=== PATIENT | female | born 1955 | race Caucasian/White ===

== ENCOUNTER 2020-12-29 07:34 | Outpatient (REF) | payer OTHER, SELFPAY ==
[2020-12-29 08:03] LABS: MANUAL DIFF FLAG NO
[2020-12-29 08:05] LABS: Basophils Absolute Auto 0.1 X10*3/uL (0.0-0.2); Basophils Percent Auto 1.1 % (0-2); Eosinophils Absolute Auto 0.2 X10*3/uL (0.0-0.4); Eosinophils Percent Auto 3.2 % (0-4); Hematocrit 40.8 % (37-47); Imm Gran Abs Auto 0.02 X10*3/uL (0.00-0.03); Imm Gran Pct Auto 0.4 % (0.0-0.4); Lymphocytes Absolute Auto 2.3 X10*3/uL (1.2-4.9); Lymphocytes Percent Auto 41.3 % (20-40); Mean Corpuscular HGB Conc 31.9 g/dl (31.0-35.0); Mean Corpuscular Hemoglobin 28.6 pg (27.0-33.0); Mean Corpuscular Volume 89.7 fL (80-98); Mean Platelet Volume 10.5 fL (9.4-12.3); Monocytes Absolute Auto 0.5 X10*3/uL (0.1-1.2); Monocytes Percent Auto 9.2 % (2-11); Neutrophils Absolute Auto 2.5 X10*3/uL (2.0-8.3); Neutrophils Percent Auto 44.8 % (45-73); Platelet Count 290 X10*3/uL (160-400); Red Blood Count 4.55 X10*6/uL (4.20-5.50); Red Cell Distribution Width 12.8 % (11.0-16.0); White Blood Count 5.6 X10*3/uL (4.8-10.8)
[2020-12-29 08:29] LABS: Anion Gap 11 (12-20); Blood Urea Nitrogen 15 mg/dL (9-16); Calcium 9.2 mg/dL (8.4-10.2); Carbon Dioxide 28 mmol/L (22-29); Chloride 106 mmol/L (96-108); Cholesterol 216 mg/dL; Estimated Glomerular Filt Rate > 60; Glucose Fasting 95 mg/dL (60-99); HDL Cholesterol 49 mg/dL; LDL Cholesterol Calculated 149 mg/dl; Potassium 4.6 mmol/L (3.3-5.1); Sodium 140 mmol/L (135-145); Triglycerides 92 mg/dL
[2020-12-29 08:53] LABS: TSH reflex Free T4 13.92 uIU/mL (0.32-4.0)
[2020-12-29 09:26] LABS: Free T4 (Free Thyroxine) 0.76 ng/dL (0.71-1.85)
== END 2020-12-29 07:35 | disposition home or self-care (01) ==
LOC: HO.LAB 07:34
PROVIDERS: PCP Internal Medicine; Visit Provider Nurse Practitioner Family
DX: E03.9 Hypothyroidism, unspecified (principal)
CPT/HCPCS: 36415; 80048; 80061; 84439; 84443; 85025

== ENCOUNTER 2021-05-10 10:33 | Outpatient (REF) | payer OTHER, SELFPAY ==
[2021-05-10 11:48] LABS: Cholesterol 202 mg/dL; HDL Cholesterol 49 mg/dL; LDL Cholesterol Calculated 120 mg/dl; Triglycerides 167 mg/dL
[2021-05-10 12:09] LABS: Thyroid Stimulating Hormone 2.71 uIU/mL (0.32-4.0)
[2021-05-11 05:42] LABS: Thyroglobulin Antibodies <1 IU/mL (< or = 1); Thyroid Peroxidase Antibodies 1 IU/mL (<9)
[2021-05-18 14:27] LABS: Vitamin D 25-OH, D2 <4 ng/mL; Vitamin D 25-OH, D3 22 ng/mL; Vitamin D 25-OH, Total 22 ng/mL (30-100)
== END 2021-05-10 10:34 | disposition home or self-care (01) ==
LOC: HO.LAB 10:33
PROVIDERS: PCP Internal Medicine; Visit Provider Internal Medicine
DX: E78.5 Hyperlipidemia, unspecified (principal); E55.9 Vitamin D deficiency, unspecified; E03.9 Hypothyroidism, unspecified
CPT/HCPCS: 36415; 80061; 82306; 84443; 86376; 86800

== ENCOUNTER 2021-05-30 10:24 | Emergency (ER) | payer OTHER, SELFPAY ==
--- NOTE | ~2021-05-30 | XR_ITS ---
EXAMINATION: XR CHEST CLINICAL INFORMATION: Epigastric pain COMPARISON: Previous chest x-ray most recent December 2015 TECHNIQUE: 2 views of the chest were obtained. FINDINGS: The cardiac and mediastinal contours are stable. The lungs are clear. There is no pleural effusion or pneumothorax. There are degenerative changes of the spine. XR/XR chest 2V IMPRESSION: No evidence for acute disease in the chest.
--- NOTE | ~2021-05-30 | CT_ITS ---
EXAMINATION: CT ABDOMEN AND PELVIS WITH CONTRAST CLINICAL INFORMATION: Epigastric pain and nausea COMPARISON: None TECHNIQUE: Multidetector volumetric images were obtained from the superior aspect of the liver through the pubic symphysis following administration 85 mL of Omnipaque 350 intravenous contrast. Sagittal and coronal reformatted images were obtained on the technologist's workstation. Oral contrast: Yes This CT examination was performed using dose optimization techniques as appropriate, variously including the following: *Automated exposure control *Adjustment of mA and/or kV according to patient size (this includes techniques or standardized protocols for targeted exams where dose is matched to indication/reason for exam; i.e. extremities or head) *Use of iterative reconstruction technique DLP: 468 mGy-cm FINDINGS: LUNG BASES: The visualized lung bases are unremarkable. LIVER, GALLBLADDER, AND BILIARY TREE: The liver is normal in size, shape, and attenuation. No focal hepatic lesion or biliary ductal dilatation is present. The gallbladder has been removed. PANCREAS: Unremarkable. SPLEEN: Unremarkable. ADRENAL GLANDS: Unremarkable. KIDNEYS AND URETERS: There is a small 5 mm low-attenuation lesion in the right kidney probably representing a cyst. Kidneys are otherwise unremarkable. BLADDER: Unremarkable. GASTROINTESTINAL TRACT: The terminal ileum, cecum and proximal right colon are slightly distended and filled with fluid. There is question of area of wall thickening and wall enhancement in the proximal right colon versus changes due to peristalsis, for example axial image 44 series 3, coronal reconstructed image 39 and sagittal reconstructed image 96. Small and large bowel is otherwise unremarkable. The appendix is upper normal in size measuring 7 mm at the tip. There is high attenuation seen in the tip of the appendix. This may represent retained oral contrast or appendicolith. The peripancreatic fat is normal. There is no fluid seen surrounding the appendix. ABDOMINAL WALL: There is a small umbilical hernia containing fat. LYMPH NODES: Normal. VASCULAR: Unremarkable. PELVIC VISCERA: Uterus appears to have been removed. No pelvic mass is seen. OSSEOUS STRUCTURES: Unremarkable. CT/CT abdomen pelvis w con IMPRESSION: Slightly distended fluid-filled terminal ileum, cecum and proximal right colon suggestive of an ileus. There is question of mild focal wall thickening and enhancement of the proximal right colon versus changes related to peristalsis. Possible colitis should be considered. A mass cannot be excluded. Upper normal-size tip of the appendix. There is high attenuation in the tip of the appendix questionable for retained oral contrast versus appendicolith. The periappendiceal fat is normal without inflammatory changes. Clinical correlation recommended.
[2021-05-30 10:29] VITALS: BP 160/70; PULSE 72; RESP 12; TEMP 36.5; O2SAT 99; BMI 27.8
--- NOTE | 2021-05-30 11:39 | ECG_ITS ---
Test Reason : EPIGASTRICPAIN Blood Pressure : / mmHG Vent. Rate : 051 BPM Atrial Rate : 051 BPM P-R Int : 156 ms QRS Dur : 100 ms QT Int : 456 ms P-R-T Axes : 026 -03 018 degrees QTc Int : 420 ms Sinus bradycardia Otherwise normal ECG No previous ECGs available Referred By: Veronique Bynum Electronically Signed By:Kwame Hernandez
[2021-05-30] MEDS: 0.9 % Sodium Chloride 1,000 ML 999 ML IVCONT (12:02)
[2021-05-30] MEDS: ondansetron HCL 4 MG/2 ML VIAL IVPUSH (12:02)
[2021-05-30 12:07] LABS: MANUAL DIFF FLAG NO
[2021-05-30 12:08] LABS: Basophils Absolute Auto 0.1 X10*3/uL (0.0-0.2); Basophils Percent Auto 0.6 % (0-2); Eosinophils Absolute Auto 0.1 X10*3/uL (0.0-0.4); Eosinophils Percent Auto 0.9 % (0-4); Hematocrit 41.4 % (37-47); Hemoglobin 13.3 g/dl (12.0-16.0); Imm Gran Abs Auto 0.03 X10*3/uL (0.00-0.03); Imm Gran Pct Auto 0.3 % (0.0-0.4); Lymphocytes Absolute Auto 1.7 X10*3/uL (1.2-4.9); Lymphocytes Percent Auto 19.6 % (20-40); Mean Corpuscular HGB Conc 32.1 g/dl (31.0-35.0); Mean Corpuscular Hemoglobin 28.7 pg (27.0-33.0); Mean Corpuscular Volume 89.2 fL (80-98); Mean Platelet Volume 10.5 fL (9.4-12.3); Monocytes Absolute Auto 0.7 X10*3/uL (0.1-1.2); Monocytes Percent Auto 7.8 % (2-11); Neutrophils Absolute Auto 6.3 X10*3/uL (2.0-8.3); Neutrophils Percent Auto 70.8 % (45-73); Platelet Count 306 X10*3/uL (160-400); Red Blood Count 4.64 X10*6/uL (4.20-5.50); Red Cell Distribution Width 13.5 % (11.0-16.0); White Blood Count 8.8 X10*3/uL (4.8-10.8)
--- NOTE | 2021-05-30 12:08 | ED_ITS ---
HPI - Abdominal Pain General Chief Complaint: Abdominal Pain Stated Complaint: abd pain Time Seen by Provider: 05/30/21 11:29 Source: patient Mode of arrival: ambulatory History of Present Illness HPI narrative: 65-year-old female with a past medical history of hyperlipidemia, hypothyroid, s/p , hysterectomy, and cholecystectomy, presenting to the ED complaining of epigastric abdominal pain radiating to back with associated nausea, diaphoresis, lightheadedness, & generalized fatigue beginning around 10:30am. Admits symptoms improving at present. Reports similar episode prior to cholecystectomy, however this is 1st episode since cholecystectomy. Denies fever, chills, vomiting, CP/SOB, diarrhea/constipation, dysuria/hematuria MD elicited complaint: abdominal pain Related Data Previous Rx's Medication Instructions Recorded levothyroxine 50 mcg tablet 50 mcg PO DAILY 90 Days #90 tab 04/11/21 Allergies Allergy/AdvReac Type Severity Reaction Status Date / Time No Known Allergies Allergy Verified 05/01/21 16:30 [No Known Allergies*] Review of Systems Review of Systems Constitutional: No Fever, No Chills, + Fatigue, No Malaise, + diaphoresis ENT/Mouth: No Ear Pain, No Nasal Congestion, No sore throat, No Swallowing Difficulty Eyes: No Eye Pain, No Vision Changes Cardiovascular: No Chest Pain, No SOB, No Edema Respiratory: No Cough, No Dyspnea Gastrointestinal: + Nausea, No Vomiting, No Diarrhea, No Constipation, + Abdominal pain Genitourinary: No Dysuria, No Urinary Frequency, No Hematuria, No Flank Pain Musculoskeletal: No joint pain, No Myalgias, No Joint Swelling Skin: No Skin Lesions, No rash Neuro: + generalized Weakness, No Loss of Consciousness, + lightheadedness, No Headache Yes all other systems are reviewed and are negative Physical Exam Vital Signs: Vital Signs: Last Vital Signs Temp 97.7 F 05/30/21 16:11 Pulse 59 05/30/21 16:11 Resp 18 05/30/21 16:11 BP 170/82 H 05/30/21 16:11 Pulse Ox 99 05/30/21 16:11 Body Mass Index 27.8 Const: General: cooperative, healthy appearing and no acute distress Orientation/consciousness: patient oriented x3 Limitations: no limitations HENMT: Head: Yes normal to inspection Ears: hearing grossly normal bilaterally General nose exam: Normal external nose present Face and sinus: Yes normal facial exam Eyes: General: appearance normal, both eyes and all related structures EOM: EOMs intact bilaterally Neck: Neck: Yes normal visual inspection and Yes no meningeal signs Resp: Effort & Inspection: normal respiratory effort Auscultation: clear to auscultation bilaterally, no rales, no rhonchi and no wheezes Cardio: Rate: regular rate Heart sounds: S1 normal heart sound present and S2 normal heart sound present Peripheral pulses: Peripheral pulses 2+ throughout GI: Inspection: Yes normal to inspection Palpation (GI): Soft to palpation, Tenderness to palpation present (GI) in the epigastrum, no guarding and not rigid : General: Yes no CVA tenderness Back/Spine/Pelvis: Back: no CVA tenderness Skin: Rashes: no rashes Wounds: no wounds Neuro: General: patient oriented x3, moves all extremities and no meningeal signs Gait exam (Neuro): Normal gait present Extrem: General: Yes normal to inspection and Yes no pedal edema Course Course Course Narrative: XR chest 2V IMPRESSION: No evidence for acute disease in the chest. -1313-- no leukocytosis, troponin x1 negative, labs otherwise unremarkable -UA with trace leuk esterase, otherwise not infected XR chest 2V IMPRESSION: No evidence for acute disease in the chest. CT abdomen pelvis w con IMPRESSION: Slightly distended fluid-filled terminal ileum, cecum and proximal right colon suggestive of an ileus. There is question of mild focal wall thickening and enhancement of the proximal right colon versus changes related to peristalsis. Possible colitis should be considered. A mass cannot be excluded. Upper normal-size tip of the appendix. There is high attenuation in the tip of the appendix questionable for retained oral contrast versus appendicolith. The periappendiceal fat is normal without inflammatory changes. Clinical correlation recommended >> case discussed with Dr. Chris, surgery he will evaluate patient in the ED. Patient denies abdominal pain at this time, denies nausea / vomiting. -1714--patient was evaluated by Dr. Chris and was offered admission however patient declined, recommended patient obtains colonoscopy outpatient, patient denies pain at present, abdomen is soft and nontender, worrisome signs and symptoms and strict return precautions were discussed, she verbalized understanding feel safe for discharge home MDM - Abdominal Pain MDM Narrative Medical decision making narrative: 65-year-old female with a past medical history of hyperlipidemia, hypothyroid, s/p , hysterectomy, and cholecystectomy, presenting to the ED complaining of epigastric abdominal pain radiating to back with associated nausea, diaphoresis, lightheadedness, & generalized fatigue beginning around 10:30am. On exam VSS, NAD/well-appearing, concern for ACS vs pancreatitis. Unlikely dissection or AAA as symptoms are improving Plan: EKG, labs, troponin x2, CXR, CT AP, reassess Medical Records Attestation: I reviewed the patient's medical records. Lab Data Attestation: I reviewed the patient's lab results. Result diagrams: 05/30/21 12:02 05/30/21 12:02 Labs: Lab Results 05/30/21 05/30/21 05/30/21 Range/Units 12:02 12:02 12:02 WBC 8.8 (4.8-10.8) X10*3/uL RBC 4.64 (4.20-5.50) X10*6/uL Hgb 13.3 (12.0-16.0) g/dl Hct 41.4 (37-47) % MCV 89.2 (80-98) fL MCH 28.7 (27.0-33.0) pg MCHC 32.1 (31.0-35.0) g/dl RDW 13.5 (11.0-16.0) % Plt Count 306 (160-400) X10*3/uL MPV 10.5 (9.4-12.3) fL Immature Gran % (Auto) 0.3 (0.0-0.4) % Neut % (Auto) 70.8 (45-73) % Lymph % (Auto) 19.6 L (20-40) % [place] % (Auto) 7.8 (2-11) % Eos % (Auto) 0.9 (0-4) % Baso % (Auto) 0.6 (0-2) % Lymph # (Auto) 1.7 (1.2-4.9) X10*3/uL [place] # (Auto) 0.7 (0.1-1.2) X10*3/uL Eos # (Auto) 0.1 (0.0-0.4) X10*3/uL Baso # (Auto) 0.1 (0.0-0.2) X10*3/uL Abs Immat Gran (auto) 0.03 (0.00-0.03) X10*3/uL Absolute Neuts (auto) 6.3 (2.0-8.3) X10*3/uL Absolute Nucleated RBC 0.000 (0.0-0.012) X10*3/uL Nucleated RBC % (auto) 0.0 (0.0-0.2) /100WBC PT (9.9-13.0) SEC INR (0.9-1.1) APTT (24.1-38.0) SEC Sodium 139 (135-145) mmol/L Potassium 4.2 (3.3-5.1) mmol/L Chloride 103 (96-108) mmol/L Carbon Dioxide 28 (22-29) mmol/L Anion Gap 12 (12-20) BUN 14 (9-16) mg/dL Creatinine 0.86 (0.5-1.4) mg/dL Estim Creat Clear Calc 58.5 Estimated GFR > 60 Random Glucose 101 (60-115) mg/dL Calcium 9.9 D (8.4-10.2) mg/dL Magnesium 2.0 (1.6-2.6) mg/dL Total Bilirubin 0.4 (0.0-1.0) mg/dL Direct Bilirubin 0.2 (0.0-0.5) mg/dL AST 20 (5-31) U/L ALT 11 (0-31) U/L Alkaline Phosphatase 83 (39-117) U/L Troponin I High Sens < 3.5 (<3.5-17.0) ng/L Total Protein 7.3 (6.5-8.0) g/dL Albumin 4.3 (3.5-5.0) g/dL Lipase (8-78) U/L Urine Color Urine Appearance Urine pH (5.0-8.0) Ur Specific [place] (1.005-1.025) Urine Protein (NEG-TRACE) MG/DL Urine Glucose (UA) (NEG) MG/DL Urine Ketones (NEG) MG/DL Urine Blood (NEG) Urine Nitrite (NEG) Ur Leukocyte Esterase (NEG) Urine RBC (0) /HPF Urine WBC (0-4) /HPF Ur Squamous Epith Cells /LPF Urine Bacteria /LPF 05/30/21 05/30/21 05/30/21 Range/Units 12:02 12:02 12:43 WBC (4.8-10.8) X10*3/uL RBC (4.20-5.50) X10*6/uL Hgb (12.0-16.0) g/dl Hct (37-47) % MCV (80-98) fL MCH (27.0-33.0) pg MCHC (31.0-35.0) g/dl RDW (11.0-16.0) % Plt Count (160-400) X10*3/uL MPV (9.4-12.3) fL Immature Gran % (Auto) (0.0-0.4) % Neut % (Auto) (45-73) % Lymph % (Auto) (20-40) % [place] % (Auto) (2-11) % Eos % (Auto) (0-4) % Baso % (Auto) (0-2) % Lymph # (Auto) (1.2-4.9) X10*3/uL [place] # (Auto) (0.1-1.2) X10*3/uL Eos # (Auto) (0.0-0.4) X10*3/uL Baso # (Auto) (0.0-0.2) X10*3/uL Abs Immat Gran (auto) (0.00-0.03) X10*3/uL Absolute Neuts (auto) (2.0-8.3) X10*3/uL Absolute Nucleated RBC (0.0-0.012) X10*3/uL Nucleated RBC % (auto) (0.0-0.2) /100WBC PT 11.2 (9.9-13.0) SEC INR 1.0 (0.9-1.1) APTT 32.6 (24.1-38.0) SEC Sodium (135-145) mmol/L Potassium (3.3-5.1) mmol/L Chloride (96-108) mmol/L Carbon Dioxide (22-29) mmol/L Anion Gap (12-20) BUN (9-16) mg/dL Creatinine (0.5-1.4) mg/dL Estim Creat Clear Calc Estimated GFR Random Glucose (60-115) mg/dL Calcium (8.4-10.2) mg/dL Magnesium (1.6-2.6) mg/dL Total Bilirubin (0.0-1.0) mg/dL Direct Bilirubin (0.0-0.5) mg/dL AST (5-31) U/L ALT (0-31) U/L Alkaline Phosphatase (39-117) U/L Troponin I High Sens (<3.5-17.0) ng/L Total Protein (6.5-8.0) g/dL Albumin (3.5-5.0) g/dL Lipase 9 (8-78) U/L Urine Color STRAW Urine Appearance CLEAR Urine pH 7.0 (5.0-8.0) Ur Specific [place] <= 1.005 (1.005-1.025) Urine Protein NEG (NEG-TRACE) MG/DL Urine Glucose (UA) NEG (NEG) MG/DL Urine Ketones NEG (NEG) MG/DL Urine Blood NEG (NEG) Urine Nitrite NEG (NEG) Ur Leukocyte Esterase TRACE H (NEG) Urine RBC 0 (0) /HPF Urine WBC 0-2 (0-4) /HPF Ur Squamous Epith Cells TRACE /LPF Urine Bacteria NONE /LPF 05/30/21 Range/Units 15:20 WBC (4.8-10.8) X10*3/uL RBC (4.20-5.50) X10*6/uL Hgb (12.0-16.0) g/dl Hct (37-47) % MCV (80-98) fL MCH (27.0-33.0) pg MCHC (31.0-35.0) g/dl RDW (11.0-16.0) % Plt Count (160-400) X10*3/uL MPV (9.4-12.3) fL Immature Gran % (Auto) (0.0-0.4) % Neut % (Auto) (45-73) % Lymph % (Auto) (20-40) % [place] % (Auto) (2-11) % Eos % (Auto) (0-4) % Baso % (Auto) (0-2) % Lymph # (Auto) (1.2-4.9) X10*3/uL [place] # (Auto) (0.1-1.2) X10*3/uL Eos # (Auto) (0.0-0.4) X10*3/uL Baso # (Auto) (0.0-0.2) X10*3/uL Abs Immat Gran (auto) (0.00-0.03) X10*3/uL Absolute Neuts (auto) (2.0-8.3) X10*3/uL Absolute Nucleated RBC (0.0-0.012) X10*3/uL Nucleated RBC % (auto) (0.0-0.2) /100WBC PT (9.9-13.0) SEC INR (0.9-1.1) APTT (24.1-38.0) SEC Sodium (135-145) mmol/L Potassium (3.3-5.1) mmol/L Chloride (96-108) mmol/L Carbon Dioxide (22-29) mmol/L Anion Gap (12-20) BUN (9-16) mg/dL Creatinine (0.5-1.4) mg/dL Estim Creat Clear Calc Estimated GFR Random Glucose (60-115) mg/dL Calcium (8.4-10.2) mg/dL Magnesium (1.6-2.6) mg/dL Total Bilirubin (0.0-1.0) mg/dL Direct Bilirubin (0.0-0.5) mg/dL AST (5-31) U/L ALT (0-31) U/L Alkaline Phosphatase (39-117) U/L Troponin I High Sens < 3.5 (<3.5-17.0) ng/L Total Protein (6.5-8.0) g/dL Albumin (3.5-5.0) g/dL Lipase (8-78) U/L Urine Color Urine Appearance Urine pH (5.0-8.0) Ur Specific [place] (1.005-1.025) Urine Protein (NEG-TRACE) MG/DL Urine Glucose (UA) (NEG) MG/DL Urine Ketones (NEG) MG/DL Urine Blood (NEG) Urine Nitrite (NEG) Ur Leukocyte Esterase (NEG) Urine RBC (0) /HPF Urine WBC (0-4) /HPF Ur Squamous Epith Cells /LPF Urine Bacteria /LPF Discharge Plan Discharge Clinical Impression: Ileus Patient Disposition: Home, Self-Care Instructions: Ileus (ED) Additional Instructions: Your blood work was reassuring today in the ED Your CT scan showed an ileus, which is slow movement of your gut It is important for you to follow-up outpatient for colonoscopy If he develop constant or worsening abdominal pain, nausea, vomiting, diarrhea, are unable to eat or drink, or developed fever please return to the ED immediately Prescriptions: No Action levothyroxine 50 mcg tablet 50 mcg PO DAILY 90 Days Qty: 90 RF: 0 Referrals: Lalo Marshall [Physician] - 5 days (For a colonoscopy) Roe Chris MD [Physician] - 10 days (As needed) [facility] Past Medical History Attestation statement: The following information was validated with the patient. Medical History Dyslipidemia Hospital discharge follow-up Hypothyroidism Surgical History History of breast biopsy History of section History of total abdominal hysterectomy Family History Family History (Updated 05/01/21 @ 16:20 by MAKAYLA Valenzuela) Father Cerebral hemorrhage Diabetes Mother Diabetes Brother Alive and well Sister Diabetes Son In good health Paternal Grandmother Breast cancer Social History Social History Housing: House Alcohol intake: never Patient Tobacco Use Status: Former Tobacco user Tobacco use type: Cigarette e-Cigarette/Vaping Use: Never Used Second Hand Smoke Exposure: No Use of substances other than those prescribed or required for medical reasons: No Advance Directives: Yes Advance Directives Information Provided: Yes Advance Directives on File: No Patient : No service: No Current occupational status: employed Current occupational exposures/hazards: No
[2021-05-30 12:14] LABS: Prothrombin Time 11.2 SEC (9.9-13.0)
[2021-05-30 12:17] LABS: Partial Thromboplastin Time 32.6 SEC (24.1-38.0)
[2021-05-30 12:32] LABS: Alanine Aminotransferase 11 U/L (0-31); Albumin Level 4.3 g/dL (3.5-5.0); Alkaline Phosphatase 83 U/L (39-117); Anion Gap 12 (12-20); Aspartate Amino Transferase 20 U/L (5-31); Bilirubin Direct 0.2 mg/dL (0.0-0.5); Bilirubin Total 0.4 mg/dL (0.0-1.0); Blood Urea Nitrogen 14 mg/dL (9-16); Calcium 9.9 mg/dL (8.4-10.2); Carbon Dioxide 28 mmol/L (22-29); Chloride 103 mmol/L (96-108); Creatinine Clr Calc Pharmacy 58.5; Estimated Glomerular Filt Rate > 60; Glucose Random 101 mg/dL (60-115); Potassium 4.2 mmol/L (3.3-5.1); Sodium 139 mmol/L (135-145); Total Protein 7.3 g/dL (6.5-8.0)
[2021-05-30 12:33] LABS: Lipase 9 U/L (8-78)
[2021-05-30 12:38] LABS: Troponin-I High Sensitivity < 3.5 ng/L (<3.5-17.0)
[2021-05-30 13:05] LABS: Glucose Urine UA NEG (NEG); Leukocyte Esterase Urine TRACE (NEG); Nitrite Urine NEG (NEG); Specific Gravity - Urine <= 1.005 (1.005-1.025); UACC Culture Trigger YES; Urine Blood NEG (NEG); Urine Ketones NEG (NEG); Urine Protein NEG (NEG-TRACE)
[2021-05-30 13:11] LABS: Appearance Urine CLEAR; Color Urine STRAW
[2021-05-30 13:17] LABS: RBC Urine 0 /HPF (0); Squamous Epithelial Cell Urine TRACE /LPF; WBC Urine 0-2 /HPF (0-4)
[2021-05-30] MEDS: iohexoL 350 MG/ML 100 ML INFUS..BTL IV (13:26)
[2021-05-30 14:01] VITALS: BP 138/64; PULSE 53; RESP 12; O2SAT 99
--- NOTE | 2021-05-30 14:03 | PC.NURSE ---
PT IN NAD AT THIS TIME. REPORTS PAIN 7 NAUSEA NOW COMPLETELY RESOLVED. WAITING ON SECOND TROPONIN. REMAINS SINUS WENDY ON MONITOR.
[2021-05-30 16:06] LABS: Troponin-I High Sensitivity < 3.5 ng/L (<3.5-17.0)
[2021-05-30 16:11] VITALS: BP 170/82; PULSE 59; RESP 18; TEMP 36.5; O2SAT 99
--- NOTE | 2021-05-30 17:13 | PM.CNGS ---
History of Present Illness Consult details Consult date: 05/30/21 Narrative: 65F who came to the ED earlier today because of abdominal pain. She says that her day started as usual but sometime this morning, she had an episode of pain on the upper abdomen which lasted for about 30 minutes. She says this resolved spontaneously. However, she had another similar episode later in the morning also lasting for about 30 minutes. She therefore decided to come to the ED. She denies any nausea or vomitting. She denies any diarrhea. She had lap cholecystectomy in [facility] last Fevruary 2020. She says this was uneventful. She says she does not have any abdominal pain anymore. Review of Systems Constitutional: Constitutional: Denies chills and Denies fever(s) Cardiovascular: Cardiovascular: Denies chest pain, Denies dyspnea and Denies dyspnea on exertion Respiratory: Respiratory: Denies cough, Denies dyspnea and Denies dyspnea on exertion Gastrointestinal: Gastrointestinal: Denies hematochezia and Denies change in bowel habits Genitourinary: Genitourinary: Denies hematuria Musculoskeletal: Musculoskeletal: Denies back pain and Denies limited range of motion Neurologic: Denies focal weakness and Denies convulsions Psychiatric: Psychiatric: Denies depression and Denies mood swings PMFSH Past Medical History Medical History (Updated 05/30/21 @ 17:18 by Roe Chris MD) Abnormal CT of the abdomen Dyslipidemia Hospital discharge follow-up Hypothyroidism Family History Family History Father Cerebral hemorrhage Diabetes Mother Diabetes Brother Alive and well Sister Diabetes Son In good health Paternal Grandmother Breast cancer Surgical History Surgical History History of breast biopsy History of section History of total abdominal hysterectomy Social History Social History Housing: House Alcohol intake: never Patient Tobacco Use Status: Former Tobacco user Tobacco use type: Cigarette e-Cigarette/Vaping Use: Never Used Second Hand Smoke Exposure: No Use of substances other than those prescribed or required for medical reasons: No Advance Directives: Yes Advance Directives Information Provided: Yes Advance Directives on File: No Patient : No service: No Current occupational status: employed Current occupational exposures/hazards: No Meds Allergies Allergy/AdvReac Type Severity Reaction Status Date / Time No Known Allergies Allergy Verified 05/01/21 16:30 [No Known Allergies*] Physical Exam Vital Signs: Vital Signs: Last Vital Signs Temp 97.7 F 05/30/21 16:11 Pulse 59 05/30/21 16:11 Resp 18 05/30/21 16:11 BP 170/82 H 05/30/21 16:11 Pulse Ox 99 05/30/21 16:11 Body Mass Index 27.8 Const: General: comfortable and no acute distress Orientation/consciousness: patient oriented x3 Neck: Neck: Yes no lymphadenopathy Resp: Auscultation: clear to auscultation bilaterally Cardio: Rhythm: regular rhythm GI: Palpation (GI): Soft to palpation, nontender and no guarding Neuro: General: patient oriented x3 Results Labs Result diagrams: 05/30/21 12:02 05/30/21 12:02 Labs: Abnormal lab results 05/30/21 05/30/21 Range/Units 12:02 12:43 Lymph % (Auto) 19.6 L (20-40) % Ur Leukocyte Esterase TRACE H (NEG) Short CBC 05/30/21 Range/Units 12:02 WBC 8.8 (4.8-10.8) X10*3/uL Hgb 13.3 (12.0-16.0) g/dl Hct 41.4 (37-47) % Plt Count 306 (160-400) X10*3/uL BMP 05/30/21 12:02 Sodium 139 Potassium 4.2 Chloride 103 Carbon Dioxide 28 BUN 14 Creatinine 0.86 Calcium 9.9 D Liver Function 05/30/21 Range/Units 12:02 Total Bilirubin 0.4 (0.0-1.0) mg/dL Direct Bilirubin 0.2 (0.0-0.5) mg/dL AST 20 (5-31) U/L ALT 11 (0-31) U/L Alkaline Phosphatase 83 (39-117) U/L Albumin 4.3 (3.5-5.0) g/dL Urine 05/30/21 Range/Units 12:43 Urine Color STRAW Urine Appearance CLEAR Urine pH 7.0 (5.0-8.0) Ur Specific [place] <= 1.005 (1.005-1.025) Urine Protein NEG (NEG-TRACE) MG/DL Urine Glucose (UA) NEG (NEG) MG/DL All other labs normal. Imaging Abdomen CT scan report/results: report reviewed and image reviewed CT scan - pelvis: report reviewed and image reviewed Assessment and Plan (1) Abnormal CT of the abdomen: Status: Acute She had 2 short episodes of what she describes as severe upper abdominal pain earlier today. She says she has had no further episodes and currently feels well. She denies any abdominal pain now, and does not have tenderness on exam. I have reviewed her CT images with the radiologist Dr. Mccormick. There is a question of some thickening of the wall of the right colon, although there is no other inflammatory changes. Her appendix is top normal in size but without any fat stranding. Differentials include mild colitis, although an early neoplastic process cannot be ruled out. Her labs are all within normal. I explained to her the above and told her that I had planned on keeping her for observation tonight. She refused and stated she has had no pain for a few hours now. I explained to her that she should have a colonoscopy to examine her right colon, and she admits she is due now for screening colonoscopy. She says she will discuss this with her PCP, and I did tell her that we can assist her with this in the office as well. Procedures Date of Service Date of Service: 05/30/21
== END 2021-05-30 17:31 | disposition home or self-care (01) ==
PROVIDERS: Physician Assistant; Emergency Provider Emergency Medicine; PCP Internal Medicine
DX: K56.7 Ileus, unspecified (principal); R10.13 Epigastric pain; M54.5 Low back pain; Z87.891 Personal history of nicotine dependence; Z79.899 Other long term (current) drug therapy
CPT/HCPCS: 36415; 71046; 74177; 80048; 80076; 81001; 81003; 83690; 83735; 84484; 85025; 85610; 85730; 87086; 93005; 96365; 96375; 99284; J2405; Q9967

== ENCOUNTER → 2021-07-16 07:31 | Outpatient (BNVA) | payer OTHER, SELFPAY | PROVIDERS: PCP Internal Medicine; Visit Provider Physician Assistant ==

== ENCOUNTER 2021-08-10 10:36 | Day surgery (SDC) | payer OTHER, SELFPAY ==
[2021-08-06 14:34] VITALS: BMI 28.1
--- NOTE | 2021-08-09 10:24 | P.CONAN_ITS ---
Documented by User: Leidy Haney NP 08/09/21 10:28 [facility] Active Problems Active Problems: All Active Problems (Updated 07/16/21 @ 08:25 by Liya Jean PA-C) COVID-19 virus infection (Acute) Ileus (Acute) Encounter for screening colonoscopy (Acute) Chronic constipation (Acute) Abnormal CT of the abdomen (Acute) Dyslipidemia (Acute) Hypothyroidism (Acute) Hospital discharge follow-up (Acute) Past Medical History Medical History (Updated 07/16/21 @ 08:25 by Liya Jean PA-C) Abnormal CT of the abdomen Dyslipidemia Hospital discharge follow-up Hypothyroidism Family History Family History Father Cerebral hemorrhage Diabetes Mother Diabetes Brother Alive and well Sister Diabetes Son In good health Paternal Grandmother Breast cancer Surgical History Surgical History (Updated 08/06/21 @ 14:33 by Coby Preston RN) History of breast biopsy History of section History of cholecystectomy History of total abdominal hysterectomy Hx of colonoscopy Social History Social History Housing: House Alcohol intake: never Patient Tobacco Use Status: Former Tobacco user Tobacco use type: Cigarette e-Cigarette/Vaping Use: Never Used Second Hand Smoke Exposure: No Advance Directives: No Advance Directives Information Provided: No Advance Directives on File: No service: No Current occupational status: employed Current occupational exposures/hazards: No Meds Allergies Allergy/AdvReac Type Severity Reaction Status Date / Time No Known Allergies Allergy Verified 08/06/21 14:26 [No Known Allergies*] Exam Exam Date and Time: August 09, 2021 1024 Height,Weight and Vital Signs: Height 5 ft 1 in Weight 67.585 kg Pertinent Lab Results Pertinent Lab Results: Laboratory Tests 05/30/21 05/30/21 12:02 12:02 WBC 8.8 Hgb 13.3 Hct 41.4 Plt Count 306 Sodium 139 Potassium 4.2 Chloride 103 Carbon Dioxide 28 BUN 14 Creatinine 0.86 Narrative Narrative: EKG 05/2021 Vent. Rate : 051 BPM ? ? Atrial Rate : 051 BPM ?? P-R Int : 156 ms? QRS Dur : 100 ms ? ? QT Int : 456 ms ? ? ? P-R-T Axes : 026 -03 018 degrees ?? QTc Int : 420 ms ? Sinus bradycardia Otherwise normal ECG No previous ECGs available CT abdomen pelvis w con 05/2021 IMPRESSION: Slightly distended fluid-filled terminal ileum, cecum and proximal right colon suggestive of an ileus. There is question of mild focal wall thickening and enhancement of the proximal right colon versus changes related to peristalsis. Possible colitis should be considered. A mass cannot be excluded. Upper normal-size tip of the appendix. There is high attenuation in the tip of the appendix questionable for retained oral contrast versus appendicolith. The periappendiceal fat is normal without inflammatory changes. Clinical correlation recommended. Assessment and Plan Assessment Anesthesia Assessment: Chart Reviewed Documented by User: Shira Judge MD 08/10/21 11:43 HPI - Anesthesia Eval Consult details Narrative: 65 yo female patient fo colonoscopy PMFSH Active Problems Active Problems: All Active Problems (Updated 07/16/21 @ 08:25 by Liya Jean PA-C) COVID-19 virus infection (Acute) Ileus (Acute) Encounter for screening colonoscopy (Acute) Chronic constipation (Acute) Abnormal CT of the abdomen (Acute) Dyslipidemia (Acute) Hypothyroidism (Acute) Hospital discharge follow-up (Acute) States received covid vaccine Past Medical History Medical History (Updated 07/16/21 @ 08:25 by Liya Jean PA-C) Abnormal CT of the abdomen Dyslipidemia Hospital discharge follow-up Hypothyroidism Family History Family History Father Cerebral hemorrhage Diabetes Mother Diabetes Brother Alive and well Sister Diabetes Son In good health Paternal Grandmother Breast cancer Family history of problems with anesthesia: No Surgical History Surgical History (Updated 08/06/21 @ 14:33 by Coby Preston RN) History of breast biopsy History of section History of cholecystectomy History of total abdominal hysterectomy Hx of colonoscopy History of Problems with Anesthesia: No Social History Social History Housing: House Alcohol intake: never Patient Tobacco Use Status: Former Tobacco user Tobacco use type: Cigarette e-Cigarette/Vaping Use: Never Used Second Hand Smoke Exposure: No Advance Directives: No Advance Directives Information Provided: No Advance Directives on File: No service: No Current occupational status: employed Current occupational exposures/hazards: No Meds Allergies Allergy/AdvReac Type Severity Reaction Status Date / Time No Known Allergies Allergy Verified 08/06/21 14:26 [No Known Allergies*] Exam Height,Weight and Vital Signs: Height 5 ft 1 in Weight 67.585 kg Vital Signs Temp Pulse Resp BP Pulse Ox 08/10/21 11:11 97.2 F 58 16 158/76 H 99 Airway Mallampati Class: II TM Dist: >3cm Neck ROM: Full Heart: RRR Lungs: CTAB Assessment and Plan Assessment Anesthesia Assessment: Anesthesia Plan Discussed Final Anesthetic Review Family History of Problems with Anesthesia: No History of Problems with Anesthesia: No NPO: No ASA Class: II Final Preanesthetic Review: No Changes in Pt Med Stat, Meds/Allgs Chart Reviewed, Consent Obtained/Reviewed and Anes Risks/Benef Reviewed Patient Risk: Low Procedure Risk: Low Assessment/Block/Sedation in SS: Assess/Block/Sedation-SS Anesthetic Plan Anesthetic Plan: MAC: Disposition: Standard PACU
[2021-08-10 11:11] VITALS: BP 158/76; PULSE 58; RESP 16; TEMP 36.2; O2SAT 99
[2021-08-10] MEDS: Lactated Ringers 1,000 ML 100 ML IVCONT (11:42)
--- NOTE | 2021-08-10 12:22 | MHC.SHP ---
Pre-Procedural Eval Section A Date of Service: 08/10/21 The patient is an INPATIENT: No Changes since office visit: Yes Patient answered all questions; No Cold of Flu in the past 2 weeks, No New Medical Problems and No Changes in Medication The History & Physical has been completed within 30 days and I have reviewed it.: Yes Section B Chief Complaint: Screening Allergies: Allergies Allergy/AdvReac Type Severity Reaction Status Date / Time No Known Allergies Allergy Verified 08/06/21 14:26 [No Known Allergies*] Plan I have reviewed the history and physical and performed a pertinent physical examination on my patient. No changes have occurred unless specified.
--- NOTE | 2021-08-10 12:27 | W.PM.OPN ---
Operative Note Operative Note Date of Service: 08/10/21 Narrative: Pre-op diagnosis:?Colon cancer screening, history of colon polyps, abdominal pain abnormal CT of the colon Post-op diagnosis:?other (Colon polyp, diverticulosis, hemorrhoids) Procedure:? COLONOSCOPY TO CECUM WITH BIOPSIES AND SNARE POLYPECTOMY Consent: Indications for the procedure and potential complications of bleeding, perforation, reaction to medications and missed diagnosis were discussed with the patient and informed consent was obtained. Instrument: Olympus PCF H 190 L variable stiffness pediatric colonoscope Monitoring: Vital signs and clinical assessment, intermittent blood pressure monitoring, continuous EKG monitoring, Pulse oximetry and Carbon Dioxide monitoring were done throughout the procedure. Colon withdrawl time was 25 minutes. Procedure: The patient was placed in the left lateral decubitis position and pre-procedure medications were administered. After a digital rectal examination of the ano-rectum, the video colonoscope was inserted into the rectum and advanced through the colon to the cecum. The colonoscope was slowly withdrawn in a retrograde panoramic fashion and the colon mucosa was carefully examined including a retroflexed view of the rectum. Findings and interventions are described below. Procedure Difficulty: Pt was placed in the supine position to intubate the TI. Findings: Terminal Ileum: Distal 10 cms was examined and appeared normal Cecum:? Minimal patchy erythema with mildly edematous folds without ulcers - random biopsies were obtained. Ascending Colon:? Normal Transverse Colon:? Normal Descending Colon:? Normal Sigmoid Colon:? An 8-10 mm sessile polyp removed with a cold snare. Moderate diverticulosis Rectum:? Normal Ano-rectum:? Small internal hemorrhoids Colon preparation: Good? Impression and Post Procedure Diagnosis: Colonoscopy Findings: One small polyp removed. Minimal patchy erythema with edematous folds without ulcers in the cecum - random biopsies were obtained - possibly resolving colitis. Moderate diverticulosis seen in the sigmoid colon Small hemorrhoids on retroflexed exam. Plan: Await pathology results Patient has an appointment on 08/28/21 in the GI Clinic with HERON Rivas. Repeat Colonoscopy interval based on path results - in 5 years if polyps are adenomatous and 10 years if polyps are hyperplastic. Above findings were reviewed with the patient and colon polyps and diverticulosis handouts were given in the discharge area Surgeon:?Noa Flannery MD Anesthesia:?MAC (Yojana Garcia CRNA) Was an World Geography Teacher used for this Procedure?:?Yes World Geography Teacher:?Jessica Brunson Estimated blood loss (mL):?0 Pathology:?other ( A. cecal biopsies, R/O colitis? B. sigmoid polyp) Condition:?stable Disposition:?PACU
[2021-08-10 13:15] VITALS: BP 111/71; PULSE 99; RESP 19; TEMP 36.1; O2SAT 97
[2021-08-10 13:20] VITALS: BP 114/75; PULSE 95; RESP 18; O2SAT 95
[2021-08-10 13:30] VITALS: BP 125/79; PULSE 75; RESP 17; O2SAT 99
== END 2021-08-10 14:10 | disposition home or self-care (01) ==
PROVIDERS: PCP Internal Medicine; Visit Provider Internal Medicine Gastroenterology
PROC: 0DJD8ZZ Inspection of Lower Intestinal Tract, Via Natural or Artificial Opening Endoscopic (ICD-10-PCS; CPT 45378; principal; 2021-08-10 11:20)
DX: Z12.11 Encounter for screening for malignant neoplasm of colon (principal); R93.3 Abnormal findings on diagnostic imaging of other parts of digestive tract; D12.5 Benign neoplasm of sigmoid colon; K57.30 Diverticulosis of large intestine without perforation or abscess without bleeding; K64.8 Other hemorrhoids
CPT/HCPCS: 45385; 45380; 88305

== ENCOUNTER → 2021-08-28 08:40 | Outpatient (BNVA) | payer OTHER, SELFPAY | PROVIDERS: PCP Internal Medicine; Visit Provider Physician Assistant ==

== ENCOUNTER 2021-12-25 15:50 | Outpatient (REF) | payer OTHER, SELFPAY ==
--- NOTE | ~2021-12-25 | MM_ITS ---
EXAMINATION: MM SCREENING DIGITAL BREAST TOMOSYNTHESIS, BILATERAL CLINICAL INFORMATION: Screening. Asymptomatic. The lifetime risk of breast cancer based on the Tyrer-Cuzick Model is 9%. COMPARISON: Mammography: 01/10/2016, 08/22/2014, 08/11/2014 TECHNIQUE: Digital breast tomosynthesis is performed in both the craniocaudal and mediolateral oblique views along with computer-aided detection (CAD). Synthesized 2D images are generated from the tomosynthesis. FINDINGS: The breasts are heterogeneously dense, which may obscure small masses (ACR BI-RADS breast composition Category c). There is fine fibronodular parenchymal pattern similar to prior exams. There is no interval mass or architectural abnormality or developing density. The axilla and skin contours are unremarkable. Right breast has biopsy clip marker mid upper outer quadrant. There are some new benign coarse calcifications right breast including tightly grouped benign coarse calcification, 2 groups, mid upper outer quadrant. In addition, right breast has interval grouped calcifications which vary in size posterior 3:30 position. These are circumferentially arranged and may represent early fibroadenomatous calcification. Patient will be recalled for additional magnification views. Left breast has additional new benign coarse calcifications. In addition, left breast has tightly grouped punctate calcifications which vary in size posterior upper outer quadrant. These may overlie a nodule 0.7 cm in size on tomography. Patient will be recalled for additional magnification views. MM/MM tomosynthesis screening BI IMPRESSION: 1. Left: Group heterogeneous fine calcification posterior upper outer quadrant, possibly within a faint nodule. 2. Right: Group heterogeneous calcifications posterior 3:30 position, possibly circumferentially arranged. ASSESSMENT: BI-RADS 0: Incomplete - Need Additional Imaging Evaluation RECOMMENDATION: 1. Additional views of the bilateral breasts (bilateral CC magnification; left magnification ML; right magnification LM). 2. Targeted ultrasound if warranted after review of the additional views. 3. Radiology department staff will contact the patient for additional imaging. This patient's information was entered into a reminder system with a target due date for their next mammogram.
== END 2021-12-25 15:51 | disposition home or self-care (01) ==
LOC: HO.MAMMO 15:50
PROVIDERS: PCP Internal Medicine; Visit Provider Nurse Practitioner Family
DX: Z12.31 Encounter for screening mammogram for malignant neoplasm of breast (principal)
CPT/HCPCS: 77063; 77067

== ENCOUNTER 2021-12-31 14:57 | Emergency (ER) | payer OTHER, SELFPAY ==
[2021-12-31 15:08] VITALS: BP 161/95; PULSE 102; RESP 18; TEMP 36.9; O2SAT 99; BMI 28.1
[2021-12-31 16:03] LABS: MANUAL DIFF FLAG NO
[2021-12-31 16:05] LABS: Basophils Percent Auto 0.2 % (0-2); Hematocrit 47.1 % (37.0-47.0); Hemoglobin 15.2 g/dl (12.0-16.0); Imm Gran Abs Auto 0.04 X10*3/uL (0.00-0.03); Imm Gran Pct Auto 0.4 % (0.0-0.4); Lymphocytes Absolute Auto 0.5 X10*3/uL (1.2-4.9); Lymphocytes Percent Auto 4.7 % (20-40); Mean Corpuscular HGB Conc 32.3 g/dl (31.0-35.0); Mean Corpuscular Hemoglobin 28.5 pg (27.0-33.0); Mean Corpuscular Volume 88.4 fL (80.0-98.0); Monocytes Absolute Auto 0.4 X10*3/uL (0.1-1.2); Monocytes Percent Auto 3.7 % (2-11); Neutrophils Absolute Auto 8.9 x10*3/uL (2.0-8.3); Platelet Count 301 X10*3/uL (160-400); Red Blood Count 5.33 X10*6/uL (4.20-5.50); SCAN SMEAR FLAG 1; White Blood Count 9.8 X10*3/uL (4.8-10.8)
[2021-12-31 16:19] LABS: Alanine Aminotransferase 32 U/L (0-31); Albumin Level 4.4 g/dL (3.5-5.0); Alkaline Phosphatase 92 U/L (39-117); Anion Gap 11 (12-20); Aspartate Amino Transferase 51 U/L (5-31); Bilirubin Total 0.5 mg/dL (0.0-1.0); Blood Urea Nitrogen 16 mg/dL (9-16); Calcium 9.9 mg/dL (8.4-10.2); Carbon Dioxide 28 mmol/L (22-29); Chloride 105 mmol/L (96-108); Creatinine Clr Calc Pharmacy 62.5; Estimated Glomerular Filt Rate > 60; Glucose Random 109 mg/dL (60-115); Potassium 4.4 mmol/L (3.3-5.1); Sodium 140 mmol/L (135-145); Total Protein 7.6 g/dL (6.5-8.0)
--- NOTE | 2021-12-31 18:38 | ED.ABDPAIN ---
HPI - Abdominal Pain General Chief Complaint: Abdominal Pain Stated Complaint: abd pain Time Seen by Provider: 12/31/21 18:35 Source: patient Mode of arrival: ambulatory Limitations: no limitations History of Present Illness HPI narrative: Patient status post cholecystectomy woke up today noticed some pain in epigastric area burning sensation has nausea and diarrhea 4 times took ibuprofen had coffee never had endoscopy before no black stools no vomiting no fever no chills Related Data Previous Rx's Medication Instructions Recorded docusate sodium 100 mg capsule 100 mg PO BID #60 cap 06/20/21 (Colace) docusate sodium 100 mg capsule 200 mg PO BEDTIME #60 cap 07/16/21 (Colace) simethicone 125 mg chewable tablet 125 mg PO TID-QID PRN #90 tab 07/16/21 (Gas Relief (simethicone)) levothyroxine 50 mcg tablet 50 mcg PO DAILY 90 Days #90 tab 10/24/21 omeprazole 40 mg capsule,delayed 40 mg PO DAILY 28 Days #28 cap 12/31/21 release sucralfate 1 gram tablet 1 g PO BID #60 tab 12/31/21 Allergies Allergy/AdvReac Type Severity Reaction Status Date / Time No Known Allergies Allergy Verified 09/13/21 16:31 [No Known Allergies*] Review of Systems Review of Systems Yes all other systems are reviewed and are negative PMFSH Past Medical History Medical History Abnormal CT of the abdomen Dyslipidemia Hospital discharge follow-up Hypothyroidism Surgical History History of breast biopsy History of section History of cholecystectomy History of total abdominal hysterectomy Hx of colonoscopy Family History Family History Father Cerebral hemorrhage Diabetes Mother Diabetes Brother Alive and well Sister Diabetes Son In good health Paternal Grandmother Breast cancer Social History Social History Housing: House Alcohol intake: never Patient Tobacco Use Status: Former Tobacco user Tobacco use type: Cigarette e-Cigarette/Vaping Use: Never Used Second Hand Smoke Exposure: No Advance Directives: No Advance Directives Information Provided: Yes service: No Current occupational status: employed Current occupational exposures/hazards: No Physical Exam ED Vital Signs: Vital Signs - 24 hr 12/31/21 15:08 Temperature 98.4 F Pulse Rate 102 H Respiratory Rate 18 Blood Pressure 161/95 H Pulse Oximetry 99 BMI result Body Mass Index 28.1 Appearance: Alert. Oriented X3. No acute distress. Very anxious Eyes: No pallor icterus ENT: Pharynx normal. Oral Mucosa moist Neck: Normal inspection. Neck supple. CVS: Normal heart rate and rhythm. Pulses normal. Respiratory: No respiratory distress. Equal air entry bilateral, no wheezing/rales/rhonchi Abdomen: Soft , tenderness in the epigastric area no rebound tenderness or guarding Bowel sounds are present, no mass palpable, no CVA tenderness Skin: Skin warm and dry. Normal skin color. Normal skin turgor. Extremities: No lower extremity edema. No calf tenderness Neuro: Oriented X 3. MDM - Abdominal Pain MDM Narrative Medical decision making narrative: Patient's epigastric pain for 24 hour duration status post cholecystectomy labs are stable with patient is very anxious on arrival felt better after Maalox Prilosec discharge patient home on Prilosec and sucralfate advised to follow-up with websphere message broker developer Lab Data Attestation: I reviewed the patient's lab results. Result diagrams: 12/31/21 15:54 12/31/21 15:54 Labs: Lab Results 12/31/21 12/31/21 Range/Units 15:54 15:54 WBC 9.8 (4.8-10.8) X10*3/uL RBC 5.33 (4.20-5.50) X10*6/uL Hgb 15.2 (12.0-16.0) g/dl Hct 47.1 H (37.0-47.0) % MCV 88.4 (80.0-98.0) fL MCH 28.5 (27.0-33.0) pg MCHC 32.3 (31.0-35.0) g/dl RDW 13.0 (11.0-16.0) % Plt Count 301 (160-400) X10*3/uL MPV 11.0 (9.4-12.3) fL Immature Gran % (Auto) 0.4 (0.0-0.4) % Neut % (Auto) 91.0 H (45-73) % Lymph % (Auto) 4.7 L (20-40) % [place] % (Auto) 3.7 (2-11) % Eos % (Auto) 0.0 (0-4) % Baso % (Auto) 0.2 (0-2) % Lymph # (Auto) 0.5 L (1.2-4.9) X10*3/uL [place] # (Auto) 0.4 (0.1-1.2) X10*3/uL Eos # (Auto) 0.0 (0.0-0.4) X10*3/uL Baso # (Auto) 0.0 (0.0-0.2) X10*3/uL Abs Immat Gran (auto) 0.04 H (0.00-0.03) X10*3/uL Absolute Neuts (auto) 8.9 H (2.0-8.3) x10*3/uL Absolute Nucleated RBC 0.000 (0.0-0.012) X10*3/uL Nucleated RBC % (auto) 0.0 (0.0-0.2) /100WBC Sodium 140 (135-145) mmol/L Potassium 4.4 (3.3-5.1) mmol/L Chloride 105 (96-108) mmol/L Carbon Dioxide 28 (22-29) mmol/L Anion Gap 11 L (12-20) BUN 16 (9-16) mg/dL Creatinine 0.80 (0.5-1.4) mg/dL Estim Creat Clear Calc 62.5 Estimated GFR > 60 Random Glucose 109 (60-115) mg/dL Calcium 9.9 (8.4-10.2) mg/dL Total Bilirubin 0.5 (0.0-1.0) mg/dL AST 51 H (5-31) U/L ALT 32 H (0-31) U/L Alkaline Phosphatase 92 (39-117) U/L Total Protein 7.6 (6.5-8.0) g/dL Albumin 4.4 (3.5-5.0) g/dL Lipase 10 (8-78) U/L Discharge Plan Discharge Clinical Impression: Acute gastritis Patient Disposition: Home, Self-Care Instructions: Gastritis (ED) Additional Instructions: Avoid fried food/spicy foods Take medication as prescribed Follow-up with PCP/gastroenterology if not better Prescriptions: New omeprazole 40 mg capsule,delayed release(DR/EC) 40 mg PO DAILY 28 Days Qty: 28 0RF sucralfate 1 gram tablet 1 g PO BID Qty: 60 0RF No Action levothyroxine 50 mcg tablet 50 mcg PO DAILY 90 Days Qty: 90 0RF docusate sodium [Colace] 100 mg capsule 100 mg PO BID Qty: 60 0RF simethicone [Gas Relief (simethicone)] 125 mg tablet,chewable 125 mg PO TID-QID PRN (Reason: abdominal distention) Qty: 90 2RF docusate sodium [Colace] 100 mg capsule 200 mg PO BEDTIME Qty: 60 5RF Referrals: Noa Flannery MD [Physician] - 1 week Stand Alone Forms: Work/School Release
[2021-12-31] MEDS: Omeprazole 40 MG CAPSULE.DR PO (19:07)
[2021-12-31] MEDS: Magnesium Hydrox/Alum Hydrox 30 ML ORAL.SUSP PO (19:07)
[2021-12-31 19:12] LABS: Lipase 10 U/L (8-78)
[2021-12-31] MEDS: Ondansetron ODT 4 MG TAB.RAPDIS TRANSLINGU (19:46)
--- NOTE | 2021-12-31 19:56 | PC.NURSE ---
This music writer assumed care of patient at 185 from EMILY Boykin
== END 2021-12-31 19:56 | disposition home or self-care (01) ==
PROVIDERS: Emergency Provider Internal Medicine; PCP Internal Medicine
DX: K29.00 Acute gastritis without bleeding (principal); Z90.49 Acquired absence of other specified parts of digestive tract; Z90.710 Acquired absence of both cervix and uterus
CPT/HCPCS: 36415; 80053; 83690; 85025; 99283

== ENCOUNTER 2022-01-07 11:05 | Outpatient (REF) | payer OTHER, SELFPAY ==
[2022-01-07 11:26] LABS: MANUAL DIFF FLAG NO
[2022-01-07 11:42] LABS: Basophils Absolute Auto 0.1 X10*3/uL (0.0-0.2); Basophils Percent Auto 0.7 % (0-2); Eosinophils Absolute Auto 0.1 X10*3/uL (0.0-0.4); Eosinophils Percent Auto 1.4 % (0-4); Hematocrit 44.8 % (37.0-47.0); Hemoglobin 14.2 g/dl (12.0-16.0); Imm Gran Abs Auto 0.02 X10*3/uL (0.00-0.03); Imm Gran Pct Auto 0.3 % (0.0-0.4); Lymphocytes Absolute Auto 3.1 X10*3/uL (1.2-4.9); Lymphocytes Percent Auto 41.8 % (20-40); Mean Corpuscular HGB Conc 31.7 g/dl (31.0-35.0); Mean Corpuscular Volume 88.4 fL (80.0-98.0); Mean Platelet Volume 10.8 fL (9.4-12.3); Monocytes Absolute Auto 0.5 X10*3/uL (0.1-1.2); Monocytes Percent Auto 6.8 % (2-11); Neutrophils Absolute Auto 3.6 x10*3/uL (2.0-8.3); Platelet Count 332 X10*3/uL (160-400); Red Blood Count 5.07 X10*6/uL (4.20-5.50); Red Cell Distribution Width 12.8 % (11.0-16.0); White Blood Count 7.4 X10*3/uL (4.8-10.8)
[2022-01-07 12:09] LABS: Anion Gap 11 (12-20); Blood Urea Nitrogen 13 mg/dL (9-16); Calcium 9.9 mg/dL (8.4-10.2); Carbon Dioxide 29 mmol/L (22-29); Chloride 104 mmol/L (96-108); Cholesterol 202 mg/dL; Estimated Glomerular Filt Rate > 60; Glucose Fasting 95 mg/dL (60-99); HDL Cholesterol 45 mg/dL; LDL Cholesterol Calculated 131 mg/dl; Potassium 4.8 mmol/L (3.3-5.1); Sodium 139 mmol/L (135-145); Triglycerides 133 mg/dL
[2022-01-07 12:29] LABS: TSH reflex Free T4 5.36 uIU/mL (0.32-4.0)
[2022-01-07 13:02] LABS: Free T4 (Free Thyroxine) 1.05 ng/dL (0.71-1.85)
== END 2022-01-07 11:06 | disposition home or self-care (01) ==
LOC: HO.LAB 11:05
PROVIDERS: PCP Internal Medicine; Visit Provider Nurse Practitioner Family
DX: Z13.1 Encounter for screening for diabetes mellitus (principal); E03.9 Hypothyroidism, unspecified; E78.5 Hyperlipidemia, unspecified; E78.00 Pure hypercholesterolemia, unspecified; R93.5 Abnormal findings on diagnostic imaging of other abdominal regions, including retroperitoneum
CPT/HCPCS: 36415; 80048; 80061; 82947; 84439; 84443; 85025

== ENCOUNTER 2022-01-15 14:50 | Outpatient (REF) | payer OTHER, SELFPAY ==
--- NOTE | ~2022-01-15 | US_ITS ---
EXAMINATION: MM DIAGNOSTIC DIGITAL MAMMOGRAPHY, BILATERAL US DIAGNOSTIC ULTRASOUND BREAST, LEFT CLINICAL INFORMATION: Recall from screening for grouped calcifications posterior medial right breast and posterior upper left breast. TC score 9%. COMPARISON: Mammography: 12/25/2021, 01/10/2016 TECHNIQUE: Digital mammography is performed in the following views: Magnification right CC x2, magnification right LM x2, magnification left CC, magnification left ML. Ultrasound left breast is targeted to the upper breast 11:00 through 2:00 position. Grayscale imaging is performed without and with harmonics. FINDINGS: The breasts are heterogeneously dense, which may obscure small masses (ACR BI-RADS breast composition Category c). Additional magnification views right breast demonstrate coarse calcifications tightly grouped posterior medial breast with circumferential arrangement suggesting probable early fibroadenomatous changes. There are other similar appearing benign coarse grouped calcifications in the outer quadrant right breast. These are probably benign and may be reassessed again in 6 months with diagnostic mammography to include magnification views. Additional magnification views left breast demonstrate grouped calcifications posterior 1:00 position. The calcifications are over 15 in number and vary in size and attenuation. Targeted left breast ultrasound to assess for a nodule at this site shows no ultrasound correlate. There is no cystic or solid mass or architectural abnormality or focal duct ectasia in the targeted area. Therefore, stereotactic sampling is recommended for the left breast calcifications. Results are discussed with the patient at time of visit. Results and recommendation called to medical technician assistant (Monisha) for MARTINEZ Doshi on 01/15/2022. US/US breast LT limited IMPRESSION: LEFT: -Grouped heterogeneous calcifications posterior 1:00 position. Recommend biopsy. RIGHT: -Probable benign calcifications posterior medial breast, suspect early fibroadenomatous change. ASSESSMENT: BI-RADS 4: Suspicious RECOMMENDATION: Stereotactic biopsy left breast calcifications. This patient's information was entered into a reminder system with a target due date for their next mammogram.
== END 2022-01-15 14:51 | disposition home or self-care (01) ==
LOC: HO.MAMMO 14:50
PROVIDERS: PCP Internal Medicine; Visit Provider Nurse Practitioner Family
DX: R92.1 Mammographic calcification found on diagnostic imaging of breast (principal)
CPT/HCPCS: 76642; 77062; 77066

== ENCOUNTER 2022-01-22 09:34 | Outpatient (REF) | payer OTHER, SELFPAY ==
--- NOTE | ~2022-01-22 | MM_ITS ---
EXAMINATION: STEREOTACTIC TOMOSYNTHESIS-GUIDED VACUUM-ASSISTED BREAST BIOPSY, LEFT SPECIMEN RADIOGRAPH, LEFT POST PROCEDURE DIGITAL MAMMOGRAM, LEFT CLINICAL INFORMATION: Grouped heterogeneous calcifications posterior 1:00 position which vary in size and attenuation. COMPARISON: Mammography 12/25/2021, 01/15/2022. TECHNIQUE/PROCEDURE: Informed consent was obtained from the patient after discussion of the benefits, risks, and alternatives to biopsy today. Patient appeared to understand. Gave opportunity for questions. Patient signed consent form. BIOPSY TABLE: PST [employer] Affirm Prone Biopsy System. LESION: Grouped calcifications posterior 1:00 position. LOCAL ANESTHESIA: 10 mL carbonated 1% lidocaine; 10 mL 1% lidocaine with epinephrine. DERMATOTOMY: Single skin jany dermatotomy performed. NEEDLE: [employer]iva 9-gauge vacuum assisted core biopsy device. APPROACH: craniocaudal. TARGETING: Combination of digital breast tomosynthesis and stereotactic digital mammography used for targeting. CORES: 5. CLIP: [employer] SecurMark Cylinder-shaped marker. SPECIMEN RADIOGRAPH: Specimen radiograph is taken in separate room using digital mammography. The index calcifications are in the excised cores. There are over 40 calcifications in the cores. POST PROCEDURE UNILATERAL DIGITAL MAMMOGRAM: The post biopsy mammogram is performed in separate room using separate digital mammography equipment from the biopsy procedure. CC x2 and ML views are obtained. The breasts are heterogeneously dense, which may obscure small masses (breast composition category: c). The clip marker is in position. The calcifications are markedly decreased at the biopsy site. There is small hematoma around the biopsy clip marker, under 2 cm. The patient tolerated the procedure well. No immediate complications. Home instructions reviewed with the patient. Final pathology results are pending. MM/MM stereotactic biopsy LT IMPRESSION: 1. Digital tomosynthesis-guided core biopsy left breast with clip placement. 2. Specimen radiograph taken and post procedure mammogram. There is satisfactory positioning of the biopsy clip. 3. Final pathology results pending. An addendum report will be issued.
[2022-01-22] MEDS: Lidocaine HCl 1 % 20 ML VIAL 10 ML SUBCUT (11:04)
[2022-01-22] MEDS: Sodium Bicarbonate 8.4% 50 MEQ/50 ML VIAL SUBCUT (11:05)
== END 2022-01-22 09:35 | disposition home or self-care (01) ==
LOC: HO.MAMMO 09:34
PROVIDERS: Visit Provider Surgery
DX: R92.8 Other abnormal and inconclusive findings on diagnostic imaging of breast (principal); E03.9 Hypothyroidism, unspecified; E78.5 Hyperlipidemia, unspecified; Z87.891 Personal history of nicotine dependence; Z90.710 Acquired absence of both cervix and uterus; Z79.899 Other long term (current) drug therapy
CPT/HCPCS: 19081; 88305; A4648

== ENCOUNTER → 2022-01-29 14:57 | Outpatient (BNVA) | payer OTHER, SELFPAY | PROVIDERS: PCP Internal Medicine; Referring Provider Internal Medicine; Visit Provider Surgery | DX: R92.8 Other abnormal and inconclusive findings on diagnostic imaging of breast (principal); Z79.899 Other long term (current) drug therapy; Z87.891 Personal history of nicotine dependence | CPT/HCPCS: 99212 ==

== ENCOUNTER 2022-05-25 10:15 | Outpatient (REF) | payer OTHER, SELFPAY ==
[2022-05-25 11:37] LABS: Thyroid Stimulating Hormone 1.21 uIU/mL (0.32-4.0)
== END 2022-05-25 10:16 | disposition home or self-care (01) ==
LOC: HO.LAB 10:15
PROVIDERS: PCP Internal Medicine; Visit Provider Internal Medicine
DX: E03.9 Hypothyroidism, unspecified (principal)
CPT/HCPCS: 36415; 84443

== ENCOUNTER 2022-09-10 14:50 | Outpatient (REF) | payer OTHER, SELFPAY ==
--- NOTE | ~2022-09-10 | MM_ITS ---
EXAMINATION: MM DIAGNOSTIC DIGITAL BREAST TOMOSYNTHESIS, RIGHT CLINICAL INFORMATION: Six-month follow up right breast calcifications. COMPARISON: Mammography: 01/22/2022 and studies dating back to 01/24/2010. TECHNIQUE: Digital breast tomosynthesis is performed in both the craniocaudal and mediolateral oblique views along with computer-aided detection (CAD). Synthesized 2-D images are generated from the tomosynthesis. Additional spot magnification views of the right breast in craniocaudal and 90 degree mediolateral views performed. FINDINGS: The breasts are heterogeneously dense, which may obscure small masses (ACR BI-RADS breast composition Category c). There is a stable parenchymal pattern of the right breast with no new abnormal dominant mass or more suspicious grouping of microcalcifications identified. On the 90 degree mediolateral view, there is stability of the 2 adjacent ribbing of calcifications which are similar in appearance to stable benign grouped calcifications more anterior to this about the inferior right breast. On the craniocaudal view, a slightly more posterior grouping is not totally included but is evident on tomosynthesis study. Recommend 6 month bilateral mammography with magnification views of the right breast to ensure stability. Results are provided to the patient at time of visit by the technologist. MM/MM tomosynthesis diagnostic RT IMPRESSION: There are no significant changes from prior study. ASSESSMENT: BI-RADS 3: Probably Benign. RECOMMENDATION: Diagnostic mammography in 6 months. This patient's information was entered into a reminder system with a target due date for their next mammogram.
== END 2022-09-10 14:51 | disposition home or self-care (01) ==
LOC: HO.MAMMO 14:50
PROVIDERS: PCP Internal Medicine; Visit Provider Surgery
DX: R92.8 Other abnormal and inconclusive findings on diagnostic imaging of breast (principal)
CPT/HCPCS: 77061; 77065

== ENCOUNTER 2022-09-25 09:25 | Emergency (ER) | payer OTHER, SELFPAY ==
--- NOTE | ~2022-09-25 | CT_ITS ---
EXAMINATION: CT ANGIOGRAM OF THE CHEST WITH AND WITHOUT CONTRAST (CT PULMONARY ANGIOGRAM FOR PE) CT ABDOMEN AND PELVIS WITH IV CONTRAST CLINICAL INFORMATION: Pulmonary embolus? Epigastric abdominal pain, syncope, pancreatitis COMPARISON: CT abdomen pelvis 05/30/2021 TECHNIQUE: Prior to contrast administration, noncontrast localization images were obtained. Subsequently, multidetector volumetric imaging was performed from the thoracic inlet to the pubic symphysis through the chest, abdomen, and pelvis following the administration of 85 mL Omnipaque 350 intravenous contrast. No contrast reaction reported Sagittal, coronal, and MIP oblique sagittal (through the chest only) reformatted images were obtained on the CT workstation, uploaded to PACS, and reviewed. Total exam dose-length product 478+264 mGy-cm This CT examination was performed using dose optimization techniques as appropriate, variously including the following: *Automated exposure control *Adjustment of mA and/or kV according to patient size (this includes techniques or standardized protocols for targeted exams where dose is matched to indication/reason for exam; i.e. extremities or head) *Use of iterative reconstruction technique FINDINGS: QUALITY OF STUDY/CONTRAST BOLUS: Satisfactory. PULMONARY ARTERIES: No central or segmental pulmonary emboli. THORACIC AORTA: No aneurysm or dissection. LUNG: There is mosaic lung attenuation. Motion artifact. Atelectasis. PLEURA: No pleural effusion or pneumothorax. MEDIASTINUM: Normal heart size. No pericardial effusion. No hilar or mediastinal lymphadenopathy. No evidence of septal bowing or right heart strain. CHEST WALL/AXILLA: No axillary or internal mammary lymphadenopathy. ABDOMEN/PELVIS: LIVER, GALLBLADDER AND BILIARY TREE: The liver is normal in size, shape, and attenuation. No focal hepatic lesion or biliary ductal dilatation is present. Status post cholecystectomy. There is mild dilation of the common bile duct and mild central intrahepatic biliary ductal prominence, not unexpected status post cholecystectomy. PANCREAS: Normal; no mass or surrounding fluid. SPLEEN: Normal size. No focal lesion. ADRENAL GLANDS: Normal; no mass. KIDNEYS AND URETERS: The kidneys are normal in size, shape, and attenuation. No hydronephrosis, hydroureter, or calculi. GASTROINTESTINAL TRACT: Stomach and small bowel are nondilated. Normal appendix. Scattered colonic diverticulosis without evidence of colitis or diverticulitis. ABDOMINAL WALL: Small fat-containing umbilical hernia improved LYMPHOVASCULAR STRUCTURES: No lymphadenopathy. The aorta is unremarkable. BLADDER: No focal mass or wall thickening seen. No bladder calculi. PELVIC VISCERA: Uterus not seen likely surgically absent. No adnexal mass. OSSEOUS STRUCTURES: No acute or suspicious osseous abnormality. CT/CT abdomen pelvis w IV con IMPRESSION: No pulmonary embolus seen. No etiology for abdominal pain identified. No CT evidence of acute pancreatitis. VTE: negative
--- NOTE | 2022-09-25 09:30 | ECG_ITS ---
Test Reason : upper abd pain Blood Pressure : / mmHG Vent. Rate : 067 BPM Atrial Rate : 067 BPM P-R Int : 172 ms QRS Dur : 098 ms QT Int : 416 ms P-R-T Axes : 036 -07 019 degrees QTc Int : 439 ms Normal sinus rhythm Normal ECG When compared with ECG of 30-MAY-2021 12:32, No significant change was found Referred By: Adan Harp Electronically Signed By:CAMILLE JUÁREZ MD
[2022-09-25 09:35] VITALS: BP 150/76; BP 163/78; PULSE 74; PULSE 75; RESP 16; TEMP 36.7; O2SAT 98; BMI 28.5
--- NOTE | 2022-09-25 09:45 | ED.GENADULT ---
HPI - General Adult General Chief complaint: Abdominal Pain Stated complaint: UPPER ABD PAIN,+LOC PER EMS Time Seen by Provider: 09/25/22 09:29 Source: patient Mode of arrival: ambulatory Limitations: no limitations History of Present Illness HPI narrative: 66 year female past medical history of GERD presents to ED for epigastric pain which led to syncope. Patient states she was at work sitting down and this morning she had severe burning epigastric pain which caused her to pass out from the pain. Patient states coworkers say she lost consciousness. Patient states since then pain has improved. Patient states pain presently at level of 2 to 3/10. Patient denies any fever, chills, lower abdominal pain, chest pain, shortness of breath, nausea, vomiting. Patient denies any recent long travel or recent surgery. Related Data Previous Rx's Medication Instructions Recorded levothyroxine 75 mcg tablet 75 mcg PO DAILY 90 days #90 tabs 07/13/22 cefuroxime axetil 250 mg tablet 250 mg PO Q12H 7 days #14 tabs 09/25/22 famotidine 20 mg tablet (Pepcid) 20 mg PO BID 10 days #20 tabs 09/25/22 Allergies Allergy/AdvReac Type Severity Reaction Status Date / Time No Known Allergies Allergy Verified 09/24/22 15:27 [No Known Allergies*] Review of Systems Review of Systems: epigastric abdominal pain. SYncope Yes all other systems are reviewed and are negative FORMERLY [facility], [facility] Past Medical History Medical History Abnormal CT of the abdomen Dyslipidemia GERD (gastroesophageal reflux disease) Hospital discharge follow-up Hypothyroidism Surgical History History of breast biopsy History of section History of cholecystectomy History of total abdominal hysterectomy Hx of colonoscopy Family History Family History Father Cerebral hemorrhage Diabetes Mother Diabetes Brother Alive and well Sister Diabetes Son In good health Paternal Grandmother Breast cancer Social History Social History Housing: House Alcohol intake: current Alcohol intake frequency: does not drink Alcohol type: wine Patient Tobacco Use Status: Former Tobacco user Tobacco use type: Cigarette Smoked in Last 30 Days: No e-Cigarette/Vaping Use: Never Used Second Hand Smoke Exposure: No Use of substances other than those prescribed or required for medical reasons: No Advance Directives: No service: No Current occupational status: employed Current occupational exposures/hazards: No Cognitive needs: No Hearing needs: No Vision needs: No Physical Exam ED Vital Signs: Vital Signs - 24 hr 09/25/22 09:35 09/25/22 11:44 09/25/22 14:34 Temperature 98.1 F 98.1 F Pulse Rate 75 70 65 Respiratory Rate 16 14 13 Blood Pressure 163/78 H 154/67 H 167/80 H Pulse Oximetry 98 97 99 Oxygen Delivery Method Room Air Room Air Room Air BMI result Body Mass Index 28.5 Const General: cooperative, healthy appearing, comfortable, no acute distress, well developed, alert, awake and Physically active Orientation/consciousness: oriented to person, oriented to place, oriented to time and patient oriented x3 HENMA Head: Yes normal to inspection, Yes No palpable skull fracture present, Yes normocephalic, Yes atraumatic and No abrasion Eyes General: appearance normal, both eyes and all related structures Neck Neck: Yes normal visual inspection, Yes full ROM, Yes no lymphadenopathy, Yes no meningeal signs, Yes trachea midline, Yes supple, No anterior neck swelling and No tender Chest Chest palpation & inspection: normal inspection of the chest and normal palpation of entire chest wall Resp Effort & Inspection: normal respiratory effort and able to speak in complete sentences Auscultation: clear to auscultation bilaterally Cardio Jugular venous distension: no JVD Heart sounds: S1 normal heart sound present and S2 normal heart sound present GI Inspection: Yes normal to inspection and No abdominal wall ecchymosis Palpation (GI): Soft to palpation, not firm, Tenderness to palpation present (GI) (mild) in the epigastrum, no guarding and not rigid General: No CVA tenderness and Yes no CVA tenderness Back/Spine/Pelvis Back: no CVA tenderness, No CVA tenderness and No back tenderness Skin General skin exam: no rashes or lesions noted and elasticity normal Neuro General: oriented to person, oriented to place, oriented to time, patient oriented x3, gait normal, tone normal, no meningeal signs and CN's II-XI intact bilaterally Cranial nerves: Yes CN's II-XII intact bilaterally Extrem Other: Male extremities negative for swelling, pain edema, or calf tenderness General: Yes normal to inspection and Yes full ROM Psych Appearance: grossly normal, well kempt and not disheveled Course Course Course Narrative: Due to epigastric and syncope with age of 66 will do EKG cardiac evaluation. Liver enzyme ordered. GI cocktail and Pepcid ordered. Reevaluation(s) Reevaluation #1: EKG negative STEMI. Patient's two troponins are negative. ALl though D dimer ordered and negative patient was sent for CHest CTA and abdominal CT scan. CHest CTA negative for PE and abdominal CT scan came back normal. Patient presently asymptomatic and has no pain. Patient states she will follow up with her PCP and will be given information for outpatient cardiology. patient deneis smoking, HTN, drug use, DM or family members dying from HEart attack. patient informed to follow up with her GI provider also. Dr. Reddy agrees with plan. Patient is presently asymptomatic. Time: 15:14 Medications Administered Discontinued Medications Generic Name Dose Route Start Last Admin Trade Name Freq PRN Reason Stop Dose Admin Al Hydroxide/Mg Hydroxide 30 ml 09/25/22 09:45 09/25/22 10:07 Magnesium Hydrox/Alum Hydrox 30 Ml Oral.Susp PO 09/25/22 09:46 30 ml ONCE ONE Administration Famotidine 20 mg 09/25/22 09:30 09/25/22 10:07 Famotidine/Pf 20 Mg/2 Ml Vial IVPUSH 09/25/22 09:31 20 mg ONCE ONE Administration Sodium Chloride 1,000 mls @ 999 mls/hr 09/25/22 11:23 09/25/22 11:45 Ns IV 09/25/22 12:23 999 mls/hr .Q1H1M STA Administration Iohexol 85 ml 09/25/22 13:10 09/25/22 13:10 Iohexol 350 Mg/Ml 100 Ml Infus..Btl IV 09/25/22 13:11 85 ml ONCE ONE Administration Lidocaine HCl 15 ml 09/25/22 09:45 09/25/22 10:07 Lidocaine Hcl Viscous 2 % 15 Ml Solution MUCOUS MEM 09/25/22 09:46 15 ml ONCE ONE Administration Medical Decision Making MDM Narrative Medical decision making narrative: epigastic pain. GERD Lab Data Result diagrams: 09/25/22 09:46 09/25/22 09:46 Labs: Lab Results 09/25/22 09/25/22 09/25/22 Range/Units 09:46 09:46 09:46 WBC 8.6 (4.8-10.8) X10*3/uL RBC 4.85 (4.20-5.50) X10*6/uL Hgb 13.7 (12.0-16.0) g/dl Hct 42.9 (37.0-47.0) % MCV 88.5 (80.0-98.0) fL MCH 28.2 (27.0-33.0) pg MCHC 31.9 (31.0-35.0) g/dl RDW 13.1 (11.0-16.0) % Plt Count 314 (160-400) X10*3/uL MPV 10.6 (9.4-12.3) fL Immature Gran % (Auto) 0.2 (0.0-0.4) % Neut % (Auto) 52.9 (45-73) % Lymph % (Auto) 35.7 (20-40) % [place] % (Auto) 8.9 (2-11) % Eos % (Auto) 1.6 (0-4) % Baso % (Auto) 0.7 (0-2) % Lymph # (Auto) 3.1 (1.2-4.9) X10*3/uL [place] # (Auto) 0.8 (0.1-1.2) X10*3/uL Eos # (Auto) 0.1 (0.0-0.4) X10*3/uL Baso # (Auto) 0.1 (0.0-0.2) X10*3/uL Abs Immat Gran (auto) 0.02 (0.00-0.03) X10*3/uL Absolute Neuts (auto) 4.6 (2.0-8.3) x10*3/uL Absolute Nucleated RBC 0.000 (0.0-0.012) X10*3/uL Nucleated RBC % (auto) 0.0 (0.0-0.2) /100WBC PT 11.3 (10.0-13.1) SEC INR 1.0 (0.9-1.1) APTT 28.0 (26.0-36.4) SEC D-Dimer High Sensitivty < 150 NG/ML Sodium 139 (135-145) mmol/L Potassium 4.1 (3.3-5.1) mmol/L Chloride 103 (96-108) mmol/L Carbon Dioxide 26 (22-29) mmol/L Anion Gap 14 (12-20) BUN 13 (9-16) mg/dL Creatinine 0.82 (0.5-1.4) mg/dL Estim Creat Clear Calc 61.3 Estimated GFR > 60 Random Glucose 115 (60-115) mg/dL Calcium 9.7 (8.4-10.2) mg/dL Total Bilirubin 0.5 (0.0-1.0) mg/dL AST 83 H (5-31) U/L ALT 42 H (0-31) U/L Alkaline Phosphatase 99 (39-117) U/L Troponin I High Sens (<3.5-17.0) ng/L B-Natriuretic Peptide (<100) pg/mL Total Protein 7.0 (6.5-8.0) g/dL Albumin 4.2 (3.5-5.0) g/dL Urine Color Urine Appearance Urine pH (5.0-9.0) Ur Specific [place] (1.005-1.025) Urine Protein (Neg-Trace) mg/dL Urine Glucose (UA) (Negative) mg/dL Urine Ketones (Negative) mg/dL Urine Blood (Negative) Urine Nitrite (Negative) Ur Leukocyte Esterase (Negative) Urine RBC (0-2) /HPF Urine WBC (0-5) /HPF Ur Squamous Epith Cells (0-2) /HPF Urine Bacteria (None Seen) Hyaline Casts (0-2) /LPF 09/25/22 09/25/22 09/25/22 Range/Units 09:46 11:32 14:46 WBC (4.8-10.8) X10*3/uL RBC (4.20-5.50) X10*6/uL Hgb (12.0-16.0) g/dl Hct (37.0-47.0) % MCV (80.0-98.0) fL MCH (27.0-33.0) pg MCHC (31.0-35.0) g/dl RDW (11.0-16.0) % Plt Count (160-400) X10*3/uL MPV (9.4-12.3) fL Immature Gran % (Auto) (0.0-0.4) % Neut % (Auto) (45-73) % Lymph % (Auto) (20-40) % [place] % (Auto) (2-11) % Eos % (Auto) (0-4) % Baso % (Auto) (0-2) % Lymph # (Auto) (1.2-4.9) X10*3/uL [place] # (Auto) (0.1-1.2) X10*3/uL Eos # (Auto) (0.0-0.4) X10*3/uL Baso # (Auto) (0.0-0.2) X10*3/uL Abs Immat Gran (auto) (0.00-0.03) X10*3/uL Absolute Neuts (auto) (2.0-8.3) x10*3/uL Absolute Nucleated RBC (0.0-0.012) X10*3/uL Nucleated RBC % (auto) (0.0-0.2) /100WBC PT (10.0-13.1) SEC INR (0.9-1.1) APTT (26.0-36.4) SEC D-Dimer High Sensitivty NG/ML Sodium (135-145) mmol/L Potassium (3.3-5.1) mmol/L Chloride (96-108) mmol/L Carbon Dioxide (22-29) mmol/L Anion Gap (12-20) BUN (9-16) mg/dL Creatinine (0.5-1.4) mg/dL Estim Creat Clear Calc Estimated GFR Random Glucose (60-115) mg/dL Calcium (8.4-10.2) mg/dL Total Bilirubin (0.0-1.0) mg/dL AST (5-31) U/L ALT (0-31) U/L Alkaline Phosphatase (39-117) U/L Troponin I High Sens < 3.5 < 3.5 (<3.5-17.0) ng/L B-Natriuretic Peptide 28 (<100) pg/mL Total Protein (6.5-8.0) g/dL Albumin (3.5-5.0) g/dL Urine Color Yellow Urine Appearance Clear Urine pH 8.0 (5.0-9.0) Ur Specific [place] >= 1.030 H (1.005-1.025) Urine Protein Negative (Neg-Trace) mg/dL Urine Glucose (UA) Negative (Negative) mg/dL Urine Ketones Trace (Negative) mg/dL Urine Blood Negative (Negative) Urine Nitrite Negative (Negative) Ur Leukocyte Esterase Small (1+) H (Negative) Urine RBC 0-2 (0-2) /HPF Urine WBC 6-10 H (0-5) /HPF Ur Squamous Epith Cells 0-2 (0-2) /HPF Urine Bacteria None Seen (None Seen) Hyaline Casts 0-2 (0-2) /LPF ECG Data Interpretation: Normal sinus rhythm. Normal EKG. Ventricular rate 67. Pr interval 172. QRS 98. QTC 439. Negative STEMI Discharge Plan Discharge Clinical Impression: Gastroesophageal reflux disease, Epigastric abdominal pain, Syncope Patient Disposition: Home, Self-Care Instructions: Urinary Tract Infection in Women (ED), Syncope (ED), Gastroesophageal Reflux Disease (ED), Abdominal Pain (ED) Additional Instructions: Benavides electrocardiograma, an?lisis de alex y tomograf?as computarizadas resultaron negativos para signos de un ataque card?aco, co?gulo de alex, neumon?a o cualquier etiolog?a abdominal potencialmente mortal. Necesitar? seguimiento con benavides gastroenter?logo, proveedor de atenci?n primaria y tambi?n llamar a nuestro cardi?logo de seguimiento ambulatorio. Regrese al servicio de urgencias por otro episodio sincopal, dolor tor?cico, debilidad por dolor abdominal, mareos, fiebre, escalofr?os, dolor en las piernas, tos con alex, dolor abdominal o cualquier otro s?ntoma preocupante. Prescriptions: New famotidine [Pepcid] 20 mg tablet 20 mg PO BID 10 Days Qty: 20 0RF cefuroxime axetil 250 mg tablet 250 mg PO Q12H 7 Days Qty: 14 0RF No Action levothyroxine 75 mcg tablet 75 mcg PO DAILY 90 Days Qty: 90 1RF Referrals: [facility] [place] [facility] [place]Provider Group] (Epigastric pain and syncope) [facility] [place] [facility] [Provider Group] (Epigastric and syncope) Stand Alone Forms: Work/School Release Interventions: ED Discharge Assessment Last Done: 09/25/22 16:09 Discharge Date/Time: 09/25/22 16:09 Print Language: Colombian
[2022-09-25 09:50] LABS: MANUAL DIFF FLAG NO
[2022-09-25 09:55] LABS: Basophils Absolute Auto 0.1 X10*3/uL (0.0-0.2); Basophils Percent Auto 0.7 % (0-2); Eosinophils Absolute Auto 0.1 X10*3/uL (0.0-0.4); Eosinophils Percent Auto 1.6 % (0-4); Hematocrit 42.9 % (37.0-47.0); Hemoglobin 13.7 g/dl (12.0-16.0); Imm Gran Abs Auto 0.02 X10*3/uL (0.00-0.03); Imm Gran Pct Auto 0.2 % (0.0-0.4); Lymphocytes Absolute Auto 3.1 X10*3/uL (1.2-4.9); Lymphocytes Percent Auto 35.7 % (20-40); Mean Corpuscular HGB Conc 31.9 g/dl (31.0-35.0); Mean Corpuscular Hemoglobin 28.2 pg (27.0-33.0); Mean Corpuscular Volume 88.5 fL (80.0-98.0); Mean Platelet Volume 10.6 fL (9.4-12.3); Monocytes Absolute Auto 0.8 X10*3/uL (0.1-1.2); Monocytes Percent Auto 8.9 % (2-11); Neutrophils Absolute Auto 4.6 x10*3/uL (2.0-8.3); Neutrophils Percent Auto 52.9 % (45-73); Platelet Count 314 X10*3/uL (160-400); Red Blood Count 4.85 X10*6/uL (4.20-5.50); Red Cell Distribution Width 13.1 % (11.0-16.0); White Blood Count 8.6 X10*3/uL (4.8-10.8)
[2022-09-25 10:01] LABS: Prothrombin Time 11.3 SEC (10.0-13.1)
[2022-09-25] MEDS: Famotidine/PF 20 MG/2 ML VIAL IVPUSH (10:07)
[2022-09-25] MEDS: Lidocaine HCl Viscous 2 % 15 ML SOLUTION MUCOUS MEM (10:07)
[2022-09-25] MEDS: Magnesium Hydrox/Alum Hydrox 30 ML ORAL.SUSP PO (10:07)
[2022-09-25 10:08] LABS: Alanine Aminotransferase 42 U/L (0-31); Albumin Level 4.2 g/dL (3.5-5.0); Alkaline Phosphatase 99 U/L (39-117); Anion Gap 14 (12-20); Aspartate Amino Transferase 83 U/L (5-31); Bilirubin Total 0.5 mg/dL (0.0-1.0); Blood Urea Nitrogen 13 mg/dL (9-16); Calcium 9.7 mg/dL (8.4-10.2); Carbon Dioxide 26 mmol/L (22-29); Chloride 103 mmol/L (96-108); Creatinine Clr Calc Pharmacy 61.3; Estimated Glomerular Filt Rate > 60; Glucose Random 115 mg/dL (60-115); Potassium 4.1 mmol/L (3.3-5.1); Sodium 139 mmol/L (135-145)
[2022-09-25 10:18] LABS: B Type Natriuretic Peptide 28 pg/mL (<100); Troponin-I High Sensitivity < 3.5 ng/L (<3.5-17.0)
[2022-09-25 10:20] LABS: D Dimer High Sensitivity < 150 NG/ML
[2022-09-25 11:44] VITALS: BP 154/67; PULSE 70; RESP 14; O2SAT 97
[2022-09-25] MEDS: 0.9 % Sodium Chloride 1,000 ML 999 ML IV (11:45)
[2022-09-25 12:05] LABS: Troponin-I High Sensitivity < 3.5 ng/L (<3.5-17.0)
[2022-09-25] MEDS: iohexoL 350 MG/ML 100 ML INFUS..BTL 85 ML IV (13:10)
[2022-09-25 14:34] VITALS: BP 167/80; PULSE 65; RESP 13; TEMP 36.7; O2SAT 99
[2022-09-25 14:57] LABS: Appearance Urine Clear; Color Urine Yellow; Glucose Urine UA Negative (Negative); Leukocyte Esterase Urine Small (1+) (Negative); Nitrite Urine Negative (Negative); Specific Gravity - Urine >= 1.030 (1.005-1.025); UMIC TRIGGER UACC YES; Urine Blood Negative (Negative); Urine Ketones Trace mg/dL (Negative); Urine Protein Negative (Neg-Trace)
[2022-09-25 14:59] LABS: Bacteria Urine None Seen (None Seen); Hyaline Casts Urine 0-2 /LPF (0-2); RBC Urine 0-2 /HPF (0-2); Squamous Epithelial Cell Urine 0-2 /HPF (0-2); UACC Culture Trigger YES
== END 2022-09-25 16:09 | disposition home or self-care (01) ==
PROVIDERS: Physician Assistant; Emergency Provider Emergency Medicine; PCP Internal Medicine
DX: R55 Syncope and collapse (principal); K21.9 Gastro-esophageal reflux disease without esophagitis; R10.9 Unspecified abdominal pain; R10.10 Upper abdominal pain, unspecified; R06.02 Shortness of breath; Z79.899 Other long term (current) drug therapy
CPT/HCPCS: 36415; 71275; 74177; 80053; 81001; 83880; 84484; 85025; 85379; 85610; 85730; 87086; 93005; 96374; 99284; 99285; Q9967

== ENCOUNTER 2022-12-04 15:38 | Outpatient (REF) | payer OTHER, SELFPAY ==
--- NOTE | ~2022-12-04 | XR_ITS ---
EXAMINATION: XR HAND, LEFT CLINICAL INFORMATION: Pain COMPARISON: None TECHNIQUE: PA, lateral, and oblique views of the left hand. FINDINGS: The bones and soft tissues are normal. No fracture. Alignment is anatomic. Joint spaces are maintained. No erosions or soft tissue calcifications. XR/XR hand LT min 3V IMPRESSION: Normal radiograph. No osseous changes to explain patient's pain symptoms.
--- NOTE | ~2022-12-04 | XR_ITS ---
EXAMINATION: XR HAND, RIGHT CLINICAL INFORMATION: Pain COMPARISON: None TECHNIQUE: PA, lateral, and oblique views of the right hand. FINDINGS: The bones and soft tissues are normal. No fracture. Alignment is anatomic. Joint spaces are maintained. No erosions or soft tissue calcifications. XR/XR hand RT min 3V IMPRESSION: No significant osseous changes to explain patient's pain symptoms.
== END 2022-12-04 15:39 | disposition home or self-care (01) ==
LOC: HO.XRAY 15:38
PROVIDERS: PCP Internal Medicine; Visit Provider Nurse Practitioner Family
DX: M79.641 Pain in right hand (principal); M79.642 Pain in left hand
CPT/HCPCS: 73130

== ENCOUNTER → 2022-12-25 10:14 | Outpatient (BNVA) | payer OTHER, SELFPAY | PROVIDERS: PCP Internal Medicine; Visit Provider Physician Assistant | DX: Z13.89 Encounter for screening for other disorder (principal) ==

== ENCOUNTER 2023-01-21 07:54 | Outpatient (REF) | payer OTHER, SELFPAY ==
[2023-01-21 09:18] LABS: Alanine Aminotransferase 12 U/L (0-31); Albumin Level 4.2 g/dL (3.5-5.0); Alkaline Phosphatase 92 U/L (39-117); Anion Gap 10 (12-20); Aspartate Amino Transferase 13 U/L (5-31); Bilirubin Total 0.5 mg/dL (0.0-1.0); Blood Urea Nitrogen 16 mg/dL (9-16); Calcium 9.4 mg/dL (8.4-10.2); Carbon Dioxide 29 mmol/L (22-29); Chloride 106 mmol/L (96-108); Cholesterol 225 mg/dL; Estimated Glomerular Filt Rate > 60; Glucose Fasting 89 mg/dL (60-99); HDL Cholesterol 56 mg/dL; LDL Cholesterol Calculated 154 mg/dl; Potassium 4.7 mmol/L (3.3-5.1); Sodium 140 mmol/L (135-145); Total Protein 6.8 g/dL (6.5-8.0); Triglycerides 79 mg/dL
== END 2023-01-21 07:55 | disposition home or self-care (01) ==
LOC: HO.LAB 07:54
PROVIDERS: PCP Internal Medicine; Visit Provider Internal Medicine
DX: Z00.00 Encounter for general adult medical examination without abnormal findings (principal); E03.9 Hypothyroidism, unspecified
CPT/HCPCS: 36415; 80053; 80061; 84443

== ENCOUNTER 2023-01-27 07:38 | Day surgery (SDC) | payer OTHER, SELFPAY ==
[2023-01-27 08:20] VITALS: BP 158/87; PULSE 73; RESP 16; TEMP 36.3; O2SAT 98; BMI 29.2
--- NOTE | 2023-01-27 09:23 | MHC.SHP ---
Pre-Procedural Eval Section A Date of Service: 01/27/23 The patient is an INPATIENT: No Changes since office visit: No Cold of Flu in the past 2 weeks, No New Medical Problems, No Changes in Medication and No Patient answered all questions The History & Physical has been completed within 30 days and I have reviewed it.: Yes Section B Chief Complaint: Trigger thumb, left thumb Allergies: Allergies Allergy/AdvReac Type Severity Reaction Status Date / Time No Known Allergies Allergy Verified 01/23/23 15:47 [No Known Allergies*] Plan I have reviewed the history and physical and performed a pertinent physical examination on my patient. No changes have occurred unless specified. Time Spent With Patient Time: Total time managing care of this patient today ____ minutes.
--- NOTE | 2023-01-27 09:25 | W.PM.OPN ---
Operative Note Operative Note Date of Service: 01/27/23 Narrative: Operative Note Preop diagnosis: 1. Left trigger thumb locked in extension Postop diagnosis: 1. Same Procedure: 1. Left thumb A1 manisha release Surgeon: Lucita Cummings MD Anesthesia: local block using 1% lidocaine with epinephrine Findings: Good active flexion and extension with No locking or catching after A1 manisha release EBL: Less than 5 mL Tourniquet time: None Specimens: None Complications: None Disposition: Brought to recovery room in stable condition Plan: Follow-up for 10-14 days for wound check and suture removal Indications: The patient is 67 years old, with a left trigger thumb locked in extension. The risks and benefits of operative treatment including but not limited to risk of damage to blood vessels, nerves, tendons, infection, persistent pain, persistent symptoms, recurrence or possible need for additional surgery were discussed with the patient and the patient wishes to proceed with surgery. Procedure: Once consent was obtained a local block was performed in the preop area using a combination of 1% lidocaine with epinephrine. She was somewhat anxious prior to her injection but tolerated it well. The patient was then brought back to the operating suite and placed on the operative table in supine position. The left upper extremity was prepped and draped in a standard surgical fashion. Once assured that we had a good block, a 1.5 cm oblique incision was made centered over the A1 manisha of the left thumb . The incision was made through the skin to the subcutaneous tissues using a #15 blade. Careful dissection was made down to the level of the A1 manisha using tenotomy scissors, with care being taken to protect the nearby neurovascular structures. A longitudinal incision was made in the A1 manisha 1st using a #15 blade, then using tenotomy scissors under direct visualization. The A1 manisha was noted to be thickened. Following our A1 manisha release, we no longer saw any locking or catching of the digit with flexion and extension. Once satisfied with our A1 manisha release the wound was copiously irrigated with normal saline and hemostasis was obtained with a brief period of local pressure. The skin edges were reapproximated with some 5.0 nylon suture material and a sterile dressing was applied. The patient appears to have tolerated the procedure well and with no complications. All digits were well vascularized at the conclusion of the case.
--- NOTE | 2023-01-27 10:23 | PC.NURSE ---
POST OP VITAL SIGNS 180/90, 75, 14, 97% RA.
== END 2023-01-27 10:13 | disposition home or self-care (01) ==
PROVIDERS: PCP Internal Medicine; Visit Provider Orthopaedic Surgery
PROC: (CPT 26055; principal; 2023-01-27 09:20)
DX: M65.312 Trigger thumb, left thumb (principal); M79.645 Pain in left finger(s); E78.5 Hyperlipidemia, unspecified; E03.9 Hypothyroidism, unspecified; K21.9 Gastro-esophageal reflux disease without esophagitis; Z87.891 Personal history of nicotine dependence
CPT/HCPCS: 26055; J0171

== ENCOUNTER → 2023-02-11 09:42 | Outpatient (BNVA) | payer OTHER, SELFPAY | PROVIDERS: PCP Internal Medicine; Visit Provider Orthopaedic Surgery | DX: Z13.89 Encounter for screening for other disorder (principal) ==

== ENCOUNTER 2023-10-02 15:38 | Outpatient (AMB) | payer OTHER, SELFPAY ==
--- NOTE | 2023-10-02 15:45 | MHC.PC.OV ---
Vital Signs 10/02/23 15:46 Height 5 ft 1 in Weight 162 lb BMI 30.6 BP 160/94 H Blood Pressure Location Lt brachial Position Sitting Pulse 84 Pulse Source Pulse Oximeter Pulse Oximetry (%) 97 Oxygen Delivery Method Room Air Intake Visit Reasons: Annual Exam Intake Note: Patient here for an annual physical exam Associate Director Regulatory Affairs Required: No Accompanied by: Self / Same As Patient Allergies No Known Allergies [No Known Allergies*] Allergy (Verified 10/02/23 16:02) Medication List - Last Reconciled 10/02/23 by Katy Huynh MD levothyroxine 75 mcg PO DAILY 90 days Tobacco use date assessed: 12/04/22 Fall risk assessment: No Falls in past year Last assessed Fall Risk: 10/02/23 Dental Screening Dental Screen Date: 10/02/23 Did you have a dental visit in the last 12 months?: No Did you have a dental problem in the last 6 months where you did not have access to dental care?: No Was dental information given to patient?: Patient has dentist HPI HPI Comments History of Present Illness Details This is a 67-year-old female that comes for her physical exam. She has elevated blood pressure that will be recheck in 3 weeks by nurse navigator. She declines blood pressure medication as of now. Last colonoscopy was 2020. Last mammogram was August 2022. Last bone density was over 2 years ago. No need for Pap smear due to hysterectomy for benign reasons. [facility] Medical History GERD (gastroesophageal reflux disease) Abnormal CT of the abdomen Dyslipidemia Hypothyroidism Hospital discharge follow-up Surgical History Hx of colonoscopy History of cholecystectomy History of breast biopsy History of section History of total abdominal hysterectomy Family History (Updated 10/02/23 @ 16:08 by Katy Huynh MD) Father Cerebral hemorrhage Diabetes Liver failure Mother Diabetes Brother Alive and well Sister Diabetes Son In good health Paternal Grandmother Breast cancer Social History Housing: House Alcohol intake: current Alcohol intake frequency: does not drink Alcohol type: wine Patient Tobacco Use Status: Former Tobacco user Tobacco use type: Cigarette e-Cigarette/Vaping Use: Never Used Second Hand Smoke Exposure: No service: No Current occupational status: employed 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 Lalo Dickinson, Aditi Jose, Paul Matute and colleagues, with an educational kailee from [employer]. Review of Systems Const All systems reviewed & are unremarkable except as noted in HPI and below Eyes Reports no additional complaints, Denies change in vision and Denies other visual disturbances Card Denies chest pain at rest, Denies chest pain with activity, Denies edema, Denies irregular heart rhythm, Denies claudication, Denies dyspnea, Denies dyspnea on exertion, Denies orthopnea, Denies paroxysmal nocturnal dyspnea and Denies slow heart rate Resp Denies cough, Denies dyspnea and Denies dyspnea on exertion GI Denies abdominal pain, Denies change in bowel habits, Denies excessive flatus, Denies nausea and Denies vomiting Denies urinary incontinence, Denies urinary hesitancy and Denies urinary urgency Musc Denies abnormal gait, Denies atrophy, Denies deformity and Denies limited range of motion Skin/Breast Denies bleeding lesions, Denies changing lesions and Denies rash Neuro Denies abnormal gait and Denies lack of coordination Physical exam (Primary Care) Vital Signs: Last Vital Signs Pulse 84 10/02/23 15:46 BP 160/94 H 10/02/23 15:46 Pulse Ox 97 10/02/23 15:46 Oxygen Delivery Method Room Air 10/02/23 15:46 BMI result Body Mass Index 30.6 Tobacco/Smoking Status: Tobacco use Status Tobacco use date assessed 12/04/22 10/02/23 15:53 Patient Tobacco Use Status Former Tobacco user 10/02/23 15:53 Tobacco use type Cigarette 10/02/23 15:53 e-Cigarette/Vaping Use Never Used 10/02/23 15:53 Thrive Assessment: Date of Thrive Assessment Date Thrive assessed 12/04/22 10/02/23 15:53 Const Orientation/consciousness: patient oriented x3 HENMT Head: Yes normal to inspection, Yes normocephalic and Yes atraumatic Ears: external ears normal Eyes General: appearance normal, both eyes and all related structures Eyelids: Yes eyelids normal Conjunctivae: conjunctivae normal Neck Neck: Yes normal visual inspection and Yes supple Resp Effort & Inspection: normal respiratory effort Auscultation: clear to auscultation bilaterally Cardio Jugular venous distension: no JVD Rate: regular rate Rhythm: regular rhythm Heart sounds: S1 normal heart sound present and S2 normal heart sound present GI Inspection: Yes normal to inspection Palpation (GI): Soft to palpation and nontender Auscultation: normal bowel sounds Skin General skin exam: no rashes or lesions noted Neuro General: patient oriented x3 and no focal motor deficits Extrem General: Yes full ROM Psych Appearance: grossly normal Office Procedures Flu Questionnaire Does the patient have a severe egg allergy?: No Immunizations flu vacc [id number] 6mos up(PF) 60 mcg(15 mcgx4)/0.5 mL IM syringe Performing Provider: Katy Huynh MD [facility] Documented (not given) by: MAKAYLA Valenzuela on 10/02/23 16:18 Reason Not Given: Patient Refused Assessment and Plan Assessment & Plan (1) Physical exam: Code(s): Z00.00 - Encounter for general adult medical examination without abnormal findings Plan: Repeat in a year. Orders: Orders MM screening mammo BI Today Z12.31 - Encounter for screening mammogram for malignant neoplasm of breast Lipid Panel Today E78.5 - Hyperlipidemia, unspecified, Z00.00 - Encounter for general adult medical examination without abnormal findings Comprehensive [place]. Panel Fast Today Z00.00 - Encounter for general adult medical examination without abnormal findings XR DEXA axial skeleton Today N95.9 - Unspecified menopausal and perimenopausal disorder Vitamin D 25-OH Total Today E55.9 - Vitamin D deficiency, unspecified Thyroid Stimulating Hormone Today E03.9 - Hypothyroidism, unspecified Coding Level of Care Code Est Pt Prev Care >65y(72697) Diagnoses Physical exam Z00.00 Time Spent (min) 31
[2023-10-02 15:46] VITALS: BP 160/94; PULSE 84; O2SAT 97; BMI 30.6
== END 2023-10-02 16:20 | disposition home or self-care (01) ==
PROVIDERS: Visit Provider Internal Medicine
DX: Z00.00 Encounter for general adult medical examination without abnormal findings (principal)
CPT/HCPCS: 99397

== ENCOUNTER 2023-10-25 10:18 | Outpatient (REF) | payer OTHER, SELFPAY ==
[2023-10-25 11:46] LABS: Alanine Aminotransferase 10 U/L (0-31); Albumin Level 4.2 g/dL (3.5-5.0); Alkaline Phosphatase 79 U/L (39-117); Anion Gap 12 (12-20); Aspartate Amino Transferase 13 U/L (5-31); Bilirubin Total 0.4 mg/dL (0.0-1.0); Blood Urea Nitrogen 21 mg/dL (9-16); Calcium 9.7 mg/dL (8.4-10.2); Carbon Dioxide 26 mmol/L (22-29); Chloride 106 mmol/L (96-108); Cholesterol 210 mg/dL (<200); Estimated Glomerular Filt Rate > 60; Glucose Fasting 91 mg/dL (60-99); HDL Cholesterol 54 mg/dL (>40); LDL Cholesterol Calculated 137 mg/dL (<100); Potassium 4.1 mmol/L (3.3-5.1); Sodium 140 mmol/L (135-145); Total Protein 7.4 g/dL (6.5-8.0); Triglycerides 97 mg/dL (<150)
[2023-10-25 12:03] LABS: Thyroid Stimulating Hormone 1.51 uIU/mL (0.32-4.0); Vitamin D 25-OH Total 14.2 ng/mL (>30)
== END 2023-10-25 10:19 | disposition home or self-care (01) ==
LOC: HO.LAB 10:18
PROVIDERS: PCP Internal Medicine; Visit Provider Internal Medicine
DX: Z00.00 Encounter for general adult medical examination without abnormal findings (principal); E03.9 Hypothyroidism, unspecified; E55.9 Vitamin D deficiency, unspecified; E78.5 Hyperlipidemia, unspecified
CPT/HCPCS: 36415; 80053; 80061; 82306; 84443

== ENCOUNTER 2023-11-18 13:22 | Outpatient (REF) | payer OTHER, SELFPAY ==
--- NOTE | ~2023-11-18 | MM_ITS ---
EXAMINATION: BONE DENSITOMETRY CLINICAL INDICATION: Unspecified menopausal and perimenopausal disorder. COMPARISON: Baseline BD dated 02/13/2010. TECHNIQUE: Using a [employer] DXA System (software version: 13.1) manufactured by [employer], dual-energy x-ray absorptiometry was performed of the lumbar spine and left hip. The images are of good technical quality. Summary results are attached. FINDINGS: LEFT FEMUR, NECK: Current: BMD 0.808 g/cm2, Z-score 0.0, T-score -1.7, osteopenia. Baseline: BMD 0.981 g/cm2. LEFT FEMUR, TOTAL: Current: BMD 0.933 g/cm2, Z-score 0.8, T-score -0.6, normal, 6.3% decrease from baseline (<5% change is not significant). Baseline: BMD 1.049 g/cm2. AP SPINE L1-L4: Current: BMD 1.154 g/cm2, Z-score 1.6, T-score -0.2, normal, 6.3% decrease from baseline (<5% change is not significant). Baseline: BMD 1.231 g/cm2. IDENTIFIED RISK FACTORS: Menopause, hysterectomy, bilateral oophorectomy, low calcium intake, thiazide. HISTORY OF FRACTURE: None listed. MEDICATIONS: Vitamin D. MM/XR DEXA axial skeleton IMPRESSION: 1. DIAGNOSIS: Osteopenia based on the lowest T-score value of -1.7 in the femoral neck applying World Health Organization criteria. 2. 10-YEAR FRACTURE RISK PREDICTION, FRAX: Major osteoporotic fracture (clinical spine, forearm, hip or shoulder) 5.5%. Hip fracture 0.7%. 3. Treatment Recommendations: NOF guidelines recommend consideration for treatment in postmenopausal women and men age 50 and older presenting with the following: -A hip or vertebral (clinical or morphometric) fracture. -T-score less than or equal to -2.5 at the femoral neck or spine after appropriate evaluation to exclude secondary causes. -Low bone mass at the hip or spine and a 10-year fracture probability by FRAX of greater than or equal to 3% for hip fracture or greater than or equal to 20% for major osteoporotic fracture based on the [place] adapted WHO algorithm. 4. Other Recommendations: All treatment decisions require clinical judgment and consideration of individual patient factors, including patient preferences, comorbidities, previous drug use, risk factors not captured in the FRAX model (e.g. frailty, falls, vitamin D deficiency, increased bone turnover, interval significant decline in bone density) and possible under or overestimation of fracture risk by FRAX. Additional medical evaluation for secondary cause of low bone mineral density may be appropriate. FUTURE SCAN RECOMMENDATION: People with diagnosed cases of osteoporosis or at high risk for fracture should have regular bone mineral density tests. For patients eligible for Medicare, routine testing is allowed once every 2 years. The testing frequency can be increased to one year for patients who have rapidly progressing disease, those who are receiving or discontinuing medical therapy to restore bone mass, or have additional risk factors.
--- NOTE | ~2023-11-18 | MM_ITS ---
EXAMINATION: MM DIAGNOSTIC DIGITAL BREAST TOMOSYNTHESIS, BILATERAL CLINICAL INFORMATION: Six-month follow-up right breast calcifications. COMPARISON: Mammography: 09/10/2022, 01/15/2022, 12/25/2021 (BI-RADS 0). TECHNIQUE: Digital breast tomosynthesis is performed in both the craniocaudal and mediolateral oblique views along with computer-aided detection (CAD). Synthesized 2D images are generated from the tomosynthesis. In addition, 2-D spot magnification CC and ML views were obtained of the right breast. FINDINGS: The breasts are heterogeneously dense, which may obscure small masses (ACR BI-RADS breast composition Category c). Several foci of grouped calcifications are again noted in the right breast which vary in size in the posterior upper-outer quadrant, and also are seen in the posterior 3:30 o'clock position. These are best appreciated on the magnification views. These have been stable and unchanged since 12/25/2021, and are benign. No further follow-up recommended. Otherwise, no suspicious masses, new suspicious calcifications, or areas of architectural distortion are noted in either breast. There are biopsy clips in the upper outer bilateral breasts from benign stereotactic biopsies. MM/MM tomosynthesis diagnostic BI IMPRESSION: There are no significant changes from prior study. Stable groups of calcification right breast, unchanged from 12/25/2021. These are benign and no further diagnostic follow-up recommended. No suspicious findings in the left breast. Recommend the patient return to routine screening mammography. ASSESSMENT: BI-RADS BI-RADS 2 - Benign Findings RECOMMENDATION: 1 year F/U Results were provided to the patient at time of visit by the technologist. This patient's information was entered into a reminder system with a target due date for their next mammogram.
== END 2023-11-18 13:23 | disposition home or self-care (01) ==
LOC: HO.MAMMO 13:22
PROVIDERS: PCP Internal Medicine; Visit Provider Internal Medicine
DX: Z13.820 Encounter for screening for osteoporosis (principal); Z78.0 Asymptomatic menopausal state; R92.1 Mammographic calcification found on diagnostic imaging of breast
CPT/HCPCS: 77062; 77066; 77080

== ENCOUNTER → 2023-11-18 13:25 | Outpatient (BNV) | payer OTHER, SELFPAY | PROVIDERS: PCP Internal Medicine; Visit Provider Radiology Diagnostic Radiology | DX: R92.1 Mammographic calcification found on diagnostic imaging of breast (principal) | CPT/HCPCS: 77062; 77066 ==

== ENCOUNTER 2024-02-02 15:37 | Outpatient (AMB) | payer OTHER, SELFPAY ==
[2024-02-02 15:42] VITALS: BP 146/84; BMI 30.2
--- NOTE | 2024-02-02 15:42 | A.OFFPC_ITS ---
Vital Signs 02/02/24 15:42 02/02/24 16:26 Height 5 ft 1 in Weight 160 lb BMI 30.2 BP 146/84 H 145/80 H Blood Pressure Location Lt brachial Lt brachial Position Sitting Sitting Intake Visit Reasons: bp Intake Note: Patient here for a follow up BP Geomagnetist Required: No Accompanied by: Self / Same As Patient Allergies No Known Allergies [No Known Allergies*] Allergy (Verified 02/02/24 15:51) Medication List - Last Reconciled 02/02/24 by Katy Huynh MD cholecalciferol (vitamin D3) 50 mcg PO DAILY 90 days hydrochlorothiazide 12.5 mg PO DAILY 90 days levothyroxine 75 mcg PO DAILY 90 days triamcinolone acetonide 0.5% 1 appl topical DAILY 30 days Tobacco use date assessed: 02/02/24 Fall risk assessment: No Falls in past year Last assessed Fall Risk: 02/02/24 Dental Screening Dental Screen Date: 02/02/24 Did you have a dental visit in the last 12 months?: No Did you have a dental problem in the last 6 months where you did not have access to dental care?: No Was dental information given to patient?: Patient has dentist HPI HPI Comments History of Present Illness Details This is a 68-year-old female with hypertension, hypothyroidism, eczema and low vitamin-D that comes today for follow-up on blood pressure. I will increase hydrochlorothiazide from 12.5 mg to 25 mg. Blood pressure will be recheck by nurse navigator in 3 weeks. TSH was normal. Vitamin-D supplements for low vitamin-D. Eczema well control with steroid cream as needed. No chest pain or shortness of breath. [facility] Medical History (Updated 02/02/24 @ 16:29 by Katy Huynh MD) GERD (gastroesophageal reflux disease) Abnormal CT of the abdomen Dyslipidemia Hypothyroidism Hospital discharge follow-up Surgical History Hx of colonoscopy History of cholecystectomy History of breast biopsy History of section History of total abdominal hysterectomy Family History Father Cerebral hemorrhage Diabetes Liver failure Mother Diabetes Brother Alive and well Sister Diabetes Son In good health Paternal Grandmother Breast cancer Social History Housing: House Alcohol intake: current Alcohol intake frequency: does not drink Alcohol type: wine Patient Tobacco Use Status: Former Tobacco user Tobacco use type: Cigarette e-Cigarette/Vaping Use: Never Used Second Hand Smoke Exposure: No service: No Current occupational status: employed 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 1. Little interest or pleasure in doing things: not at all 2. Feeling down, depressed, or hopeless: not at all 3. Trouble falling or staying asleep, or sleeping too much: not at all 4. Feeling tired or having little energy: not at all 5. Poor appetite or overeating: not at all 6. Feeling bad about yourself - or that you are a failure or have let yourself or your family down: not at all 7. Trouble concentrating on things, such as reading the newspaper or watching television: not at all 8. Moving or speaking so slowly that other people could have noticed. Or the opposite - being so fidgety or restless that you have been moving around a lot more than usual: not at all 9. Thoughts that you would be better off or of hurting yourself in some way: not at all Total score: 0 Depression Screening Interpretation: Negative Depression Screening Done: Yes 12069 - PHQ-9 Billing: Yes Source: Developed by Drs. Lalo Dickinson, Aditi Jose, Paul Matute and colleagues, with an educational kailee from [employer]. Thrive Questionnaire Date Thrive assessed: 02/02/24 I am a: Patient What is your living situation today?: I have a steady place to live Within the past 12 months, did the food you bought not last and you didn't have the money to get more?: Never true Within the past 12 months, did you worry whether your food would run out before you got money to buy more?: Never true Do you have trouble paying for medicines?: No Do you have trouble getting transportation to medical appointments?: No Do you have trouble paying your heating and electricity bill?: No Do you have trouble taking care of your child, family member or friend?: No Do you have trouble with day-to-day activities such as bathing, preparing meals, shopping, managing finances, etc.?: No Are you currently unemployed and looking for a job?: No Are you interested in more education?: No Please select the resources that you would like help with: None Currently or been in a relationship where the following occur: no concerns reported THRIVE Score: 0 AUDIT C Alcohol Use Questionnaire (AUDIT-C) 1. How often do you have a drink containing alcohol?: Monthly or less 2. How many drinks containing alcohol do you have on a typical day when you are drinking?: 1 or 2 3. How often do you have six or more drinks on one occasion?: Never Total Score: 1 Score Reviewed/Action Taken: No OSMIN-7 AMB Questionnaire OSMIN-7 Date OSMIN - 7 assessed: 02/02/24 Feeling nervous, anxious, or on edge: 0 = Not at all Not being able to stop or control worryin = Not at all Worrying too much about different things: 0 = Not at all Trouble relaxin = Not at all Being so restless that it is hard to sit still: 0 = Not at all Becoming easily annoyed or irritable: 0 = Not at all Feeling afraid as if something awful might happen: 0 = Not at all Total OSMIN-7 score (0-4 normal; 5-9 mild; 10-14 moderate; 15-21 severe): 0 Source: Developed by Drs. Lalo Dickinson, Aditi Jose, Paul Matute and colleagues, with an educational kailee from [employer]. OSMIN-7 Assessment Billing OSMIN-7 Assessment Tool: OSMIN-7 Assessment 26430 Review of Systems Const All systems reviewed & are unremarkable except as noted in HPI and below Eyes Reports no additional complaints, Denies change in vision and Denies other visual disturbances Card Denies chest pain at rest, Denies chest pain with activity, Denies edema, Denies irregular heart rhythm, Denies claudication, Denies dyspnea, Denies dyspnea on exertion, Denies orthopnea, Denies paroxysmal nocturnal dyspnea and Denies slow heart rate Resp Denies cough, Denies dyspnea and Denies dyspnea on exertion GI Denies abdominal pain, Denies change in bowel habits, Denies excessive flatus, Denies nausea and Denies vomiting Denies urinary incontinence, Denies urinary hesitancy and Denies urinary urgency Musc Denies abnormal gait, Denies atrophy, Denies deformity and Denies limited range of motion Skin/Breast Denies bleeding lesions, Denies changing lesions and Denies rash Neuro Denies abnormal gait and Denies lack of coordination Physical exam (Primary Care) Vital Signs: Last Vital Signs BP 146/84 H 02/02/24 15:42 BMI result Body Mass Index 30.2 Tobacco/Smoking Status: Tobacco use Status Tobacco use date assessed 02/02/24 02/02/24 15:47 Patient Tobacco Use Status Former Tobacco user 02/02/24 15:47 Tobacco use type Cigarette 02/02/24 15:47 e-Cigarette/Vaping Use Never Used 02/02/24 15:47 PHQ-9: PHQ-9 Score PHQ-9: Total score 0 02/02/24 16:00 Depression Screening Interpretation: Negative Thrive Assessment: Date of Thrive Assessment Date Thrive assessed 02/02/24 02/02/24 15:47 Currently or been in a relationship where the following occur: no concerns reported Eyes General: appearance normal, both eyes and all related structures Eyelids: Yes eyelids normal Conjunctivae: conjunctivae normal Neck Neck: Yes normal visual inspection and Yes supple Resp Effort & Inspection: normal respiratory effort Auscultation: clear to auscultation bilaterally Cardio Jugular venous distension: no JVD Rate: regular rate Rhythm: regular rhythm Heart sounds: S1 normal heart sound present and S2 normal heart sound present Extrem General: Yes full ROM Assessment and Plan Assessment & Plan (1) Hypothyroidism: Code(s): E03.9 - Hypothyroidism, unspecified Qualifiers: Hypothyroidism type: unspecified Qualified Code(s): E03.9 - Hypothyroidism, unspecified Plan: Continue levothyroxine. (2) Essential hypertension: Code(s): I10 - Essential (primary) hypertension Plan: Increase hydrochlorothiazide. Blood pressure goal is equal or less than 130/80. Recheck blood pressure with nurse navigator in 3 weeks. (3) Hypovitaminosis D: Code(s): E55.9 - Vitamin D deficiency, unspecified Plan: Continue vitamin-D supplements. (4) Eczema: Code(s): L30.9 - Dermatitis, unspecified Plan: Continue steroid cream as needed. Orders: Orders Vitamin D 25-OH Total Today E55.9 - Vitamin D deficiency, unspecified Comprehensive [place]. Panel Fast Today E78.5 - Hyperlipidemia, unspecified Lipid Panel Today E78.5 - Hyperlipidemia, unspecified Thyroid Stimulating Hormone Today E03.9 - Hypothyroidism, unspecified Medications: New hydrochlorothiazide 25 mg PO DAILY 30 days 30 tabs 2RF Discontinued hydrochlorothiazide Discontinued Reason: No Longer Medically Relevant 12.5 mg PO DAILY 90 days 90 tabs 0RF Coding Level of Care Code Est Pt Level 4 (35534) Diagnoses Hypothyroidism, unspecified type E03.9 Hypothyroidism type: unspecified Essential hypertension I10 Hypovitaminosis D E55.9 Eczema L30.9 Additional Codes OSMIN-7 Assessment Billing - OSMIN-7 Assessment Tool: OSMIN-7 Assessment 96797 ([id number]) Time Spent (min) 22
[2024-02-02 16:26] VITALS: BP 145/80
== END 2024-02-02 16:07 | disposition home or self-care (01) ==
PROVIDERS: PCP Internal Medicine; Visit Provider Internal Medicine
DX: E03.9 Hypothyroidism, unspecified (principal); I10 Essential (primary) hypertension; E55.9 Vitamin D deficiency, unspecified; L30.9 Dermatitis, unspecified
CPT/HCPCS: 99214

== ENCOUNTER 2024-08-25 17:03 | Outpatient (AMB) | payer OTHER, MEDICARE, SELFPAY ==
--- NOTE | 2024-08-25 17:06 | A.OFFPC_ITS ---
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 Accompanied by: Self / Same As Patient Allergies No Known Allergies [No Known Allergies*] Allergy (Verified 08/25/24 17:17) Medication List - Last Reconciled 08/25/24 by Katy Huynh MD cholecalciferol (vitamin D3) 50 mcg PO DAILY 90 days hydrochlorothiazide 25 mg PO DAILY 30 days levothyroxine 75 mcg PO DAILY 90 days triamcinolone acetonide 0.5% 1 appl topical DAILY 30 days Tobacco use date assessed: 02/02/24 Fall risk assessment: No Falls in past year Last assessed Fall Risk: 08/25/24 Dental Screening Dental Screen Date: 02/02/24 HPI HPI Comments History of Present Illness Details This is a 68-year-old female with hypertension and hypothyroidism that comes today for follow-up on her conditions. Blood pressure has been well control. I will order TSH. She denies any chest pain or shortness on breath. No changes in weight. [facility] Medical History GERD (gastroesophageal reflux disease) Abnormal CT of the abdomen Dyslipidemia Hypothyroidism Hospital discharge follow-up Surgical History Hx of colonoscopy History of cholecystectomy History of breast biopsy History of section History of total abdominal hysterectomy Family History Father Cerebral hemorrhage Diabetes Liver failure Mother Diabetes Brother Alive and well Sister Diabetes Son In good health Paternal Grandmother Breast cancer Social History (Updated 08/25/24 @ 17:20 by Katy Huynh MD) Housing: House Alcohol intake: current Alcohol intake frequency: holidays/special occasions only Alcohol type: beer and wine Patient Tobacco Use Status: Former Tobacco user Tobacco use type: Cigarette e-Cigarette/Vaping Use: Never Used Second Hand Smoke Exposure: No service: No Current occupational status: employed 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 Lalo Dickinson, Aditi Jose, Paul Matute and colleagues, with an educational kailee from [employer]. Review of Systems Const All systems reviewed & are unremarkable except as noted in HPI and below Card Denies chest pain at rest, Denies chest pain with activity, Denies edema, Denies irregular heart rhythm, Denies claudication, Denies dyspnea, Denies dyspnea on exertion, Denies orthopnea, Denies paroxysmal nocturnal dyspnea and Denies slow heart rate Resp Denies cough, Denies dyspnea and Denies dyspnea on exertion Denies urinary incontinence, Denies urinary hesitancy and Denies urinary urgency Musc Denies atrophy, Denies deformity and Denies limited range of motion Skin/Breast Denies bleeding lesions, Denies changing lesions and Denies rash Physical exam (Primary Care) Vital Signs: Last Vital Signs BP 130/86 08/25/24 17:08 BMI result Body Mass Index 29.7 Tobacco/Smoking Status: Tobacco use Status Tobacco use date assessed 02/02/24 08/25/24 17:13 Patient Tobacco Use Status Former Tobacco user 08/25/24 17:20 Tobacco use type Cigarette 08/25/24 17:20 e-Cigarette/Vaping Use Never Used 08/25/24 17:20 Thrive Assessment: Date of Thrive Assessment Date Thrive assessed 02/02/24 08/25/24 17:13 Resp Effort & Inspection: normal respiratory effort Auscultation: clear to auscultation bilaterally Cardio Jugular venous distension: no JVD Rate: regular rate Rhythm: regular rhythm Heart sounds: S1 normal heart sound present and S2 normal heart sound present Extrem General: Yes full ROM Office Procedures Flu Questionnaire Does the patient have a severe egg allergy?: No Immunizations Fluarix Triv [id number] (PF) 45 mcg (15 mcg x 3)/0.5 mL IM syringe Performing Provider: Katy Huynh MD [facility] [place] [facility] Documented (not given) by: MAKAYLA Valenzuela on 08/25/24 17:14 Reason Not Given: Patient Refused Coding Level of Care Code Est Pt Level 3 (75394) Complex EM visit Add On G2211 Diagnoses Essential hypertension I10 Hypothyroidism, unspecified type E03.9 Hypothyroidism type: unspecified Time Spent (min) 19 Assessment & Plan Assessment & Plan (1) Essential hypertension: Code(s): I10 - Essential (primary) hypertension Category: Medical Plan: Continue hydrochlorothiazide. Blood pressure goal is equal or less than 130/80. (2) Hypothyroidism: Code(s): E03.9 - Hypothyroidism, unspecified Category: Medical Qualifiers: Hypothyroidism type: unspecified Qualified Code(s): E03.9 - Hypothyroidism, unspecified Plan: Continue levothyroxine. Orders: Orders Vitamin D 25-OH Total Today E55.9 - Vitamin D deficiency, unspecified Lipid Panel Today E78.5 - Hyperlipidemia, unspecified Comprehensive [place]. Panel Fast Today E78.5 - Hyperlipidemia, unspecified Influenza [id number] Immunization Today Z23 - Encounter for immunization Thyroid Stimulating Hormone Today E03.9 - Hypothyroidism, unspecified
[2024-08-25 17:08] VITALS: BP 130/86; BMI 29.7
== END 2024-08-25 17:47 | disposition home or self-care (01) ==
PROVIDERS: PCP Internal Medicine; Visit Provider Internal Medicine
DX: I10 Essential (primary) hypertension (principal); E03.9 Hypothyroidism, unspecified; Z23 Encounter for immunization

== ENCOUNTER → 2024-08-25 17:03 | Outpatient (BNVA) | payer OTHER, MEDICARE, SELFPAY | PROVIDERS: PCP Internal Medicine; Visit Provider Internal Medicine | DX: I10 Essential (primary) hypertension (principal); E03.9 Hypothyroidism, unspecified; Z79.899 Other long term (current) drug therapy; Z28.21 Immunization not carried out because of patient refusal | CPT/HCPCS: 90471 ==

== ENCOUNTER 2024-10-05 07:28 | Outpatient (REF) | payer OTHER, SELFPAY ==
[2024-10-05 08:44] LABS: Alanine Aminotransferase 14 U/L (0-31); Albumin Level 4.1 g/dL (3.5-5.0); Alkaline Phosphatase 71 U/L (39-117); Anion Gap 10 (12-20); Aspartate Amino Transferase 17 U/L (5-31); Bilirubin Total 0.4 mg/dL (0.0-1.0); Blood Urea Nitrogen 16 mg/dL (9-16); Calcium 9.6 mg/dL (8.4-10.2); Carbon Dioxide 30 mmol/L (22-29); Chloride 105 mmol/L (96-108); Cholesterol 191 mg/dL (<200); Estimated Glomerular Filt Rate > 60; Glucose Fasting 100 mg/dL (60-99); HDL Cholesterol 54 mg/dL (>40); LDL Cholesterol Calculated 122 mg/dL (<100); Potassium 3.7 mmol/L (3.3-5.1); Sodium 141 mmol/L (135-145); Total Protein 6.9 g/dL (6.5-8.0); Triglycerides 77 mg/dL (<150)
[2024-10-05 09:00] LABS: Thyroid Stimulating Hormone 1.05 uIU/mL (0.32-4.0); Vitamin D 25-OH Total 47.5 ng/mL (>30)
== END 2024-10-05 07:29 | disposition home or self-care (01) ==
LOC: HO.LAB 07:28
PROVIDERS: PCP Internal Medicine; Visit Provider Internal Medicine
DX: E55.9 Vitamin D deficiency, unspecified (principal); E78.5 Hyperlipidemia, unspecified; E03.9 Hypothyroidism, unspecified
CPT/HCPCS: 36415; 80053; 80061; 82306; 84443

== ENCOUNTER 2024-10-06 15:08 | Outpatient (AMB) | payer OTHER, SELFPAY ==
[2024-10-06 15:13] VITALS: BP 132/80; BMI 29.7
--- NOTE | 2024-10-06 15:13 | MHC.PC.OV ---
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 by: Self / Same As Patient Allergies No Known Allergies [No Known Allergies*] Allergy (Verified 10/06/24 15:29) Medication List - Last Reconciled 10/06/24 by Katy Huynh MD cholecalciferol (vitamin D3) 50 mcg PO DAILY 90 days hydrochlorothiazide 25 mg PO DAILY 30 days levothyroxine 75 mcg PO DAILY 90 days triamcinolone acetonide 0.5% 1 appl topical DAILY 30 days Tobacco use date assessed: 02/02/24 Fall risk assessment: No Falls in past year Last assessed Fall Risk: 10/06/24 Dental Screening Dental Screen Date: 10/06/24 Did you have a dental visit in the last 12 months?: No Did you have a dental problem in the last 6 months where you did not have access to dental care?: No Was dental information given to patient?: Patient has dentist HPI HPI Comments History of Present Illness Details The patient is a 68-year-old female presenting for a physical examination. Her medical history includes essential hypertension, managed with hydrochlorothiazide 25 mg once daily. She is also diagnosed with hypothyroidism, for which she takes levothyroxine 75 mcg once daily. She has osteopenia diagnosed through a recent bone densitometry; for this, she consumes calcium with vitamin D [id number]. The patient reported being lightheaded when laughing, although this symptom has not resulted in any significant daily disruption. She had a colonoscopy in 2020 where a tubular adenoma was removed, and she is due for follow-up in 2025 following recommended surveillance intervals. Her surgical history includes a hysterectomy in 2005 due to benign fibroids and a cholecystectomy in 2020. Additionally, she previously underwent a breast biopsy in 2013 which showed benign results. She had normal results on the most recent mammogram this year. Recent lab results show that her fasting glucose level is 100 mg/dL, liver function tests are normal, and total cholesterol has decreased from 200 mg/dL to 191 mg/dL. - Recent mammogram: Normal results. - Recent bone densitometry: Osteopenia. - Hypertension controlled with hydrochlorothiazide. - Vitamin D deficiency managed with supplementation. - Calcium and Vitamin D supplementation for osteopenia. - Patient received the influenza vaccine but not the COVID-19 vaccine during this visit. [facility] Medical History GERD (gastroesophageal reflux disease) Abnormal CT of the abdomen Dyslipidemia Hypothyroidism Hospital discharge follow-up Surgical History (Updated 10/06/24 @ 15:34 by Katy Huynh MD) Hx of colonoscopy History of cholecystectomy History of breast biopsy History of section History of total abdominal hysterectomy Family History Father Cerebral hemorrhage Diabetes Liver failure Mother Diabetes Brother Alive and well Sister Diabetes Son In good health Paternal Grandmother Breast cancer Social History Housing: House Alcohol intake: current Alcohol intake frequency: holidays/special occasions only Alcohol type: beer and wine Patient Tobacco Use Status: Former Tobacco user Tobacco use type: Cigarette e-Cigarette/Vaping Use: Never Used Second Hand Smoke Exposure: No service: No Current occupational status: employed 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 Current occupational exposures/hazards: No Cognitive needs: No Hearing needs: No Vision needs: No Female Reproductive History Menstrual Age of Menarche: 11 Questionnaire Thrive Questionnaire Date Thrive assessed: 02/02/24 I am a: Patient What is your living situation today?: I have a steady place to live Within the past 12 months, did the food you bought not last and you didn't have the money to get more?: Never true Within the past 12 months, did you worry whether your food would run out before you got money to buy more?: I choose not to answer this question Do you have trouble paying for medicines?: No Do you have trouble getting transportation to medical appointments?: No Do you have trouble paying your heating and electricity bill?: Yes Do you have trouble taking care of your child, family member or friend?: I choose not to answer this question Do you have trouble with day-to-day activities such as bathing, preparing meals, shopping, managing finances, etc.?: No Are you currently unemployed and looking for a job?: No Are you interested in more education?: No Please select the resources that you would like help with: None Currently or been in a relationship where the following occur: No concerns reported THRIVE Score: 1 AUDIT C Alcohol Use Questionnaire (AUDIT-C) 1. How often do you have a drink containing alcohol?: 2-4 times a month Total Score: 2 OSMIN-7 AMB Questionnaire OSMIN-7 Date OSMIN - 7 assessed: 02/02/24 Source: Developed by Drs. Lalo Dickinson, Aditi Jose, Paul Matute and colleagues, with an educational kailee from [employer]. Review of Systems Const All systems reviewed & are unremarkable except as noted in HPI and below Card Denies chest pain at rest, Denies chest pain with activity, Denies edema, Denies irregular heart rhythm, Denies claudication, Denies dyspnea, Denies dyspnea on exertion, Denies orthopnea, Denies paroxysmal nocturnal dyspnea and Denies slow heart rate Resp Denies cough, Denies dyspnea and Denies dyspnea on exertion GI Denies abdominal pain, Denies change in bowel habits, Denies excessive flatus, Denies nausea and Denies vomiting Denies urinary incontinence, Denies urinary hesitancy and Denies urinary urgency Musc Denies abnormal gait, Denies atrophy, Denies deformity and Denies limited range of motion Neuro Denies abnormal gait, Denies behavioral changes and Denies lack of coordination Psych Denies behavioral changes Physical exam (Primary Care) Vital Signs: Last Vital Signs BP 132/80 10/06/24 15:13 BMI result Body Mass Index 29.7 BMI Assessment/Plan discussion: High BMI High, discussed plan: lifestyle, weight reduction, dietary and physical activity Tobacco/Smoking Status: Tobacco use Status Tobacco use date assessed 02/02/24 10/06/24 15:16 Patient Tobacco Use Status Former Tobacco user 10/06/24 15:16 Tobacco use type Cigarette 10/06/24 15:16 e-Cigarette/Vaping Use Never Used 10/06/24 15:16 Thrive Assessment: Date of Thrive Assessment Date Thrive assessed 02/02/24 10/06/24 15:16 Currently or been in a relationship where the following occur: No concerns reported HENMT Head: Yes normal to inspection, Yes normocephalic and Yes atraumatic Ears: external ears normal Eyes General: appearance normal, both eyes and all related structures Eyelids: Yes eyelids normal Conjunctivae: conjunctivae normal Neck Neck: Yes normal visual inspection and Yes supple Resp Effort & Inspection: normal respiratory effort Auscultation: clear to auscultation bilaterally Cardio Jugular venous distension: no JVD Rate: regular rate Rhythm: regular rhythm Heart sounds: S1 normal heart sound present and S2 normal heart sound present GI Inspection: Yes normal to inspection Palpation (GI): Soft to palpation and nontender Auscultation: normal bowel sounds Skin General skin exam: no rashes or lesions noted Neuro General: no focal motor deficits Extrem General: Yes full ROM Psych Appearance: grossly normal Office Procedures Flu Questionnaire Does the patient have a severe egg allergy?: No Does the patient have severe life threatening allergies?: No Does the patient have a fever or illness today?: No Has the patient ever had Guillain-Manson Syndrome?: No Has the patient ever had any past reaction to a flu shot?: No Immunizations Fluarix Triv [id number] (PF) 45 mcg (15 mcg x 3)/0.5 mL IM syringe Performing Provider: Katy Huynh MD Performing Location[facility] [place] [facility] Administered by: MAKAYLA Valenzuela on 10/06/24 15:17 Dose Route Admin Location Dispensed Lot Number Expiration Date NDC Clinical Operations Leader 0.5 mL IM Left Deltoid 0.5 mL [id number] 05/16/25 [id number] [employer] VIS Given Date VIS Provided VIS Publication Date 10/06/24 Single Vaccine 21 Eligibility Eligibility Date Funding Source Not [facility] Eligible 10/06/24 Private Coding Level of Care Code Est Pt Prev Care >65y(36022) Diagnoses Physical exam Z00.00 Time Spent (min) 31 Assessment & Plan Assessment & Plan (1) Physical exam: Code(s): Z00.00 - Encounter for general adult medical examination without abnormal findings Category: Medical Plan - Essential Hypertension: Continue hydrochlorothiazide 25 mg once daily. Monitor blood pressure regularly. - Hypothyroidism: Continue levothyroxine 75 mcg once daily. Monitor thyroid function tests as clinically indicated. - Osteopenia: Continue with current calcium and vitamin D supplementation. Discuss potential need for additional treatment based on future assessments. - Vitamin D Deficiency: Continue daily 50 mcg vitamin D supplementation. - Tubular Adenoma: Follow-up colonoscopy scheduled for 2025 as per surveillance guidelines. - Post-cholecystectomy Status: No current symptoms or required management. Patient was informed and verbally consented to the use of an ambient scribe for clinic note documentation during this visit. During this visit, we discussed the patient's chronic conditions including hypertension, hypothyroidism, and osteopenia. We reviewed her medications and ensured adequate management of these conditions. We discussed the results of recent diagnostic tests, including normal liver function and improved cholesterol levels. The significance of calcium and vitamin D intake for bone health was reiterated due to her osteopenia. We also talked about routine follow-up for colonoscopy due to the previous removal of a tubular adenoma. A brief discussion about lifestyle factors affecting health, including her alcohol consumption patterns and previous smoking history, was conducted. We addressed the patient's concern of lightheadedness when laughing, and reassured her given the absence of other concerning symptoms. Orders: Orders Influenza [id number] Immunization Today Z23 - Encounter for immunization Patient Instructions: - Continue current medication regimen as previously prescribed. - Continue xfzc-tro-gxflafd calcium with vitamin D supplementation, taking two 500 mg doses daily. - Monitor blood pressure regularly and report any significant changes. - Schedule a follow-up to discuss any new or persisting symptoms. - Consider biotin supplements for hair health. - Undergo follow-up colonoscopy as advised in 2025. - Maintain healthy lifestyle practices and attend future routine screenings.
== END 2024-10-06 15:49 | disposition home or self-care (01) ==
PROVIDERS: PCP Internal Medicine; Visit Provider Internal Medicine
DX: Z23 Encounter for immunization (principal); Z00.00 Encounter for general adult medical examination without abnormal findings

== ENCOUNTER → 2024-10-06 15:08 | Outpatient (BNVA) | payer OTHER, SELFPAY | PROVIDERS: PCP Internal Medicine; Visit Provider Internal Medicine | DX: Z00.00 Encounter for general adult medical examination without abnormal findings (principal); Z23 Encounter for immunization; I10 Essential (primary) hypertension; E03.9 Hypothyroidism, unspecified; M85.80 Other specified disorders of bone density and structure, unspecified site; E55.9 Vitamin D deficiency, unspecified; Z79.899 Other long term (current) drug therapy | CPT/HCPCS: 90471; 90656 ==

== ENCOUNTER 2025-02-17 11:20 | Outpatient (AMB) | payer OTHER, SELFPAY ==
--- NOTE | 2025-02-17 11:21 | A.OFFVIS_ITS ---
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 No complaints. Last Pap in 2013 was negative, the patient is status post hysterectomy for benign disease is no history of abnormal Pap smears Last Mammogram was BI-RADS 2 in 12/10 Last Colonoscopy was done in 08/07, the recommendation was to repeat 5 years Last DEXA scan was done in 12/10 [facility] Medical History GERD (gastroesophageal reflux disease) Abnormal CT of the abdomen Dyslipidemia Hypothyroidism Hospital discharge follow-up Surgical History Hx of colonoscopy History of cholecystectomy History of breast biopsy History of section History of total abdominal hysterectomy Family History Father Cerebral hemorrhage Diabetes Liver failure Mother Diabetes Brother Alive and well Sister Diabetes Son In good health Paternal Grandmother Breast cancer Social History Housing: House Alcohol intake: current Alcohol intake frequency: holidays/special occasions only Alcohol type: beer and wine Patient Tobacco Use Status: Former Tobacco user Tobacco use type: Cigarette e-Cigarette/Vaping Use: Never Used Second Hand Smoke Exposure: No service: No Current occupational status: employed 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 Current occupational exposures/hazards: No Cognitive needs: No Hearing needs: No Vision needs: No Female Reproductive History Menstrual Age of Menarche: 11 Review of Systems Const All systems reviewed & are unremarkable except as noted in HPI and below Card Reports as per HPI and Reports no additional complaints Resp Reports as per HPI and Reports no additional complaints GI Reports as per HPI and Reports no additional complaints Reports as per HPI Physical Exam Vital Signs: Last Vital Signs BP 130/78 02/17/25 11:31 BMI result Body Mass Index 29.7 Const General: cooperative, healthy appearing and comfortable General: Yes bladder normal to palpation External Female Exam: No lesion Speculum Exam - Vagina: normal appearance of the vagina, normal vaginal discharge and not erythematous Speculum Exam - Cervix: Cervix absent Bimanual exam- vagina & uterus: bladder normal to palpation and uterus absent Bimanual Exam- Adnexa, other: Other (No masses detected) Assessment & Plan Assessment & Plan (1) Well woman exam: Code(s): Z01.419 - Encounter for gynecological examination (general) (routine) without abnormal findings Category: Medical Plan: Co testing not indicated since the patient 's age is above 65 with no history of abnormal Pap smears last 25 years, adequately screen for the last 10 years with no history of immunosuppression. Counseled the patient about the recommended dietary allowance of 1200 mg of Calcium & 800 IU of vitamin D. Mammogram ordered. The patient was instructed to perform monthly self-breast exams and to schedule an annual exam in a year; All questions answered and the patient verbalized understanding. Orders: Orders MM tomosynthesis screening BI Today Z12.31 - Encounter for screening mammogram for malignant neoplasm of breast Coding Level of Care Code New Pt Prev Care >65yr (81571) Diagnoses Well woman exam Z01.419
[2025-02-17 11:31] VITALS: BP 130/78; BMI 29.7
== END 2025-02-17 12:10 | disposition home or self-care (01) ==
PROVIDERS: PCP Internal Medicine; Visit Provider Obstetrics & Gynecology
DX: Z01.419 Encounter for gynecological examination (general) (routine) without abnormal findings (principal)
CPT/HCPCS: 99387; 99459

== ENCOUNTER 2025-04-04 16:05 | Outpatient (REF) | payer OTHER, SELFPAY | END 2025-04-04 16:06 | disposition home or self-care (01) | LOC: HO.MAMMO 16:05 | PROVIDERS: PCP Internal Medicine; Visit Provider Obstetrics & Gynecology | DX: Z12.31 Encounter for screening mammogram for malignant neoplasm of breast (principal) | CPT/HCPCS: 77063; 77067 ==

== ENCOUNTER → 2025-04-04 16:15 | Outpatient (BNV) | payer OTHER, SELFPAY | PROVIDERS: PCP Internal Medicine; Visit Provider Internal Medicine | DX: Z12.31 Encounter for screening mammogram for malignant neoplasm of breast (principal) | CPT/HCPCS: 77063; 77067 ==

== ENCOUNTER 2025-04-05 15:41 | Outpatient (AMB) | payer OTHER, SELFPAY ==
--- NOTE | 2025-04-05 15:43 | A.OFFPC_ITS ---
Vital Signs 04/05/25 15:46 04/05/25 16:04 Height 5 ft 1 in Weight 159 lb 6 oz BMI 30.1 BP 162/90 H 127/90 H Blood Pressure Location Lt brachial Lt brachial Position Sitting Sitting Pulse 90 Pulse Source Pulse Oximeter Pulse Oximetry (%) 98 Oxygen Delivery Method Room Air Intake Visit Reasons: bp,thyroid Infrastructure Administrator Required: No Accompanied by: Self / Same As Patient Allergies No Known Allergies [No Known Allergies*] Allergy (Verified 04/05/25 15:57) Medication List - Last Reconciled 04/05/25 by Katy Huynh MD cholecalciferol (vitamin D3) 50 mcg PO DAILY 90 days hydrochlorothiazide 25 mg PO DAILY 30 days levothyroxine 75 mcg PO DAILY 90 days minoxidil mg PO triamcinolone acetonide 0.5% 1 appl topical DAILY 30 days Tobacco use date assessed: 04/05/25 Fall risk assessment: No Falls in past year Last assessed Fall Risk: 04/05/25 Dental Screening Dental Screen Date: 04/05/25 Did you have a dental visit in the last 12 months?: No Did you have a dental problem in the last 6 months where you did not have access to dental care?: No Was dental information given to patient?: No HPI HPI Comments History of Present Illness Details The patient is a 69-year-old female presenting with a follow-up for essential hypertension. She reported that her blood pressure in a recent morning check was 127/90 mmHg, yet expressed doubt about the reliability of the readings. Her blood pressure management history includes ongoing monitoring without any significant abnormal fluctuations mentioned. During the visit, the patient's experiences with alopecia areata were discussed. She articulated worry about further hair loss and expressed apprehension about initiating treatment with minoxidil due to potential exacerbation of hair loss and concerns about liver health. The patient previously noted adequate thyroid function from her last tests in September and has well control hypothyroidism. Also has low vitamin-D on supplements. [facility] Medical History (Updated 04/05/25 @ 16:48 by Katy Huynh MD) Ileus GERD (gastroesophageal reflux disease) Abnormal CT of the abdomen Dyslipidemia Hypothyroidism Hospital discharge follow-up Surgical History Hx of colonoscopy History of cholecystectomy History of breast biopsy History of section History of total abdominal hysterectomy Family History Father Cerebral hemorrhage Diabetes Liver failure Mother Diabetes Brother Alive and well Sister Diabetes Son In good health Paternal Grandmother Breast cancer Social History Housing: House Alcohol intake: current Alcohol intake frequency: holidays/special occasions only Alcohol type: beer and wine Patient Tobacco Use Status: Former Tobacco user Tobacco use type: Cigarette e-Cigarette/Vaping Use: Never Used Second Hand Smoke Exposure: No service: No Current occupational status: employed 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 1. Little interest or pleasure in doing things: not at all 2. Feeling down, depressed, or hopeless: not at all 3. Trouble falling or staying asleep, or sleeping too much: not at all 4. Feeling tired or having little energy: not at all 5. Poor appetite or overeating: not at all 6. Feeling bad about yourself - or that you are a failure or have let yourself or your family down: not at all 7. Trouble concentrating on things, such as reading the newspaper or watching television: not at all 8. Moving or speaking so slowly that other people could have noticed. Or the opposite - being so fidgety or restless that you have been moving around a lot more than usual: not at all 9. Thoughts that you would be better off or of hurting yourself in some way: not at all Total score: 0 Depression Screening Interpretation: Negative Depression Screening Done: Yes 78154 - PHQ-9 Billing: Yes Source: Developed by Drs. Lalo Dickinson, Aditi Jose, Paul Matute and colleagues, with an educational kailee from [employer]. Thrive Questionnaire Date Thrive assessed: 04/05/25 I am a: Patient What is your living situation today?: I have a steady place to live Within the past 12 months, did the food you bought not last and you didn't have the money to get more?: Never true Within the past 12 months, did you worry whether your food would run out before you got money to buy more?: I choose not to answer this question Do you have trouble paying for medicines?: No Do you have trouble getting transportation to medical appointments?: No Do you have trouble paying your heating and electricity bill?: Yes Do you have trouble taking care of your child, family member or friend?: I choose not to answer this question Do you have trouble with day-to-day activities such as bathing, preparing meals, shopping, managing finances, etc.?: No Are you currently unemployed and looking for a job?: No Are you interested in more education?: No Please select the resources that you would like help with: None Currently or been in a relationship where the following occur: No concerns reported THRIVE Score: 1 AUDIT C Alcohol Use Questionnaire (AUDIT-C) 1. How often do you have a drink containing alcohol?: 2-4 times a month 2. How many drinks containing alcohol do you have on a typical day when you are drinking?: 1 or 2 3. How often do you have six or more drinks on one occasion?: Never Total Score: 2 OSMIN-7 AMB Questionnaire OSMIN-7 Date OSMIN - 7 assessed: 04/05/25 Feeling nervous, anxious, or on edge: 0 = Not at all Not being able to stop or control worryin = Not at all Worrying too much about different things: 0 = Not at all Trouble relaxin = Not at all Being so restless that it is hard to sit still: 0 = Not at all Becoming easily annoyed or irritable: 0 = Not at all Feeling afraid as if something awful might happen: 0 = Not at all Total OSMIN-7 score (0-4 normal; 5-9 mild; 10-14 moderate; 15-21 severe): 0 Source: Developed by Drs. Lalo Dickinson, Aditi Jose, Paul Matute and colleagues, with an educational kialee from [employer]. Review of Systems Const All systems reviewed & are unremarkable except as noted in HPI and below Card Denies chest pain at rest, Denies chest pain with activity, Denies edema, Denies irregular heart rhythm, Denies claudication, Denies dyspnea, Denies dyspnea on exertion, Denies orthopnea, Denies paroxysmal nocturnal dyspnea and Denies slow heart rate Resp Denies cough, Denies dyspnea and Denies dyspnea on exertion Physical exam (Primary Care) Vital Signs: Last Vital Signs Pulse 90 04/05/25 15:46 BP 127/90 H 04/05/25 16:04 Pulse Ox 98 04/05/25 15:46 Oxygen Delivery Method Room Air 04/05/25 15:46 BMI result Body Mass Index 30.1 Tobacco/Smoking Status: Tobacco use Status Tobacco use date assessed 04/05/25 04/05/25 15:47 Patient Tobacco Use Status Former Tobacco user 04/05/25 15:47 Tobacco use type Cigarette 04/05/25 15:47 e-Cigarette/Vaping Use Never Used 04/05/25 15:47 PHQ-9: PHQ-9 Score PHQ-9: Total score 0 04/05/25 16:00 Depression Screening Interpretation: Negative Thrive Assessment: Date of Thrive Assessment Date Thrive assessed 04/05/25 04/05/25 15:47 Currently or been in a relationship where the following occur: No concerns reported Resp Effort & Inspection: normal respiratory effort Auscultation: clear to auscultation bilaterally Cardio Jugular venous distension: no JVD Rate: regular rate Rhythm: regular rhythm Heart sounds: S1 normal heart sound present and S2 normal heart sound present Coding Level of Care Code Est Pt Level 4 (72996) Complex EM visit Add On G2211 Diagnoses Hair loss L65.9 Hypovitaminosis D E55.9 Essential hypertension I10 GERD (gastroesophageal reflux disease) K21.9 Hypothyroidism, unspecified type E03.9 Hypothyroidism type: unspecified Additional Codes PHQ-9 - 30653 - PHQ-9 Billing: Yes ([id number]) Time Spent (min) 23 Assessment & Plan Assessment & Plan (1) Hair loss: Code(s): L65.9 - Nonscarring hair loss, unspecified Category: Medical (2) Hypovitaminosis D: Code(s): E55.9 - Vitamin D deficiency, unspecified Category: Medical (3) Essential hypertension: Code(s): I10 - Essential (primary) hypertension Category: Medical (4) GERD (gastroesophageal reflux disease): Code(s): K21.9 - Gastro-esophageal reflux disease without esophagitis Category: Medical (5) Hypothyroidism: Code(s): E03.9 - Hypothyroidism, unspecified Category: Medical Qualifiers: Hypothyroidism type: unspecified Qualified Code(s): E03.9 - Hypothyroidism, unspecified Plan For essential hypertension, I will continue standard monitoring and address any inconsistencies in readings. Testing thyroid function again is advised to confirm its condition due to prior normal results and hair-related issues. For alopecia areata, options include minoxidil, though the conversation covered initial hair loss and potential liver effects. Stress was acknowledged, particularly about upcoming travel. Patient was informed and verbally consented to the use of an ambient scribe for clinic note documentation during this visit. During the visit, I discussed the management of essential hypertension with the patient, addressing the recent blood pressure reading and the reliability of her monitor. Regarding alopecia areata, I explained potential benefits and risks of treatments like minoxidil, emphasizing that initial hair loss could occur and discussing liver considerations. I encouraged stress management techniques, considering her family-related stress and planned travel to [place]. We agreed to monitor for changes in her blood pressure and reassess her thyroid status soon. Orders: Orders Thyroid Stimulating Hormone Today E03.9 - Hypothyroidism, unspecified Lipid Panel 6 Months E78.5 - Hyperlipidemia, unspecified Thyroid Stimulating Hormone 6 Months E03.9 - Hypothyroidism, unspecified Vitamin D 25-OH Total 6 Months E55.9 - Vitamin D deficiency, unspecified Comprehensive [place]. Panel Fast 6 Months K59.09 - Other constipation Patient Instructions: - Follow up with prescribed blood pressure management and monitor readings. - Schedule and complete thyroid function tests when convenient, fasting is not required. - Consider the use of minoxidil for alopecia after discussing concerns. - Engage in stress management activities, especially before and during travel.
[2025-04-05 15:46] VITALS: BP 162/90; PULSE 90; O2SAT 98; BMI 30.1
[2025-04-05 16:04] VITALS: BP 127/90
== END 2025-04-05 16:16 | disposition home or self-care (01) ==
LOC: HO.HMCH 15:42
PROVIDERS: PCP Internal Medicine; Visit Provider Internal Medicine
DX: L65.9 Nonscarring hair loss, unspecified (principal); E55.9 Vitamin D deficiency, unspecified; I10 Essential (primary) hypertension; K21.9 Gastro-esophageal reflux disease without esophagitis; E03.9 Hypothyroidism, unspecified

== ENCOUNTER → 2025-04-05 15:41 | Outpatient (BNVA) | payer OTHER, SELFPAY | PROVIDERS: PCP Internal Medicine; Visit Provider Internal Medicine | DX: I10 Essential (primary) hypertension (principal); E03.9 Hypothyroidism, unspecified; E55.9 Vitamin D deficiency, unspecified; L65.9 Nonscarring hair loss, unspecified; K21.9 Gastro-esophageal reflux disease without esophagitis; E78.5 Hyperlipidemia, unspecified; K59.09 Other constipation | CPT/HCPCS: 96127 ==

== ENCOUNTER → 2025-04-28 15:52 | Outpatient (BNVA) | payer OTHER, SELFPAY | PROVIDERS: PCP Internal Medicine ==

== ENCOUNTER 2025-10-11 17:02 | Outpatient (AMB) | payer OTHER, SELFPAY ==
[2025-10-11 17:28] VITALS: BP 138/70; PULSE 100; RESP 18; O2SAT 98; BMI 30.4
--- NOTE | 2025-10-11 17:28 | A.OFFPC_ITS ---
Vital Signs 10/11/25 17:28 Height 5 ft 1 in Weight 161 lb BMI 30.4 BP 138/70 Blood Pressure Location Lt brachial Position Sitting Respiration 18 Pulse 100 Pulse Source Pulse Oximeter Temp Source Temporal Artery Scan Pulse Oximetry (%) 98 Oxygen Delivery Method Room Air Intake Visit Reasons: Annual Exam Management Liaison Required: No Accompanied by: Self / Same As Patient Allergies No Known Allergies (No Known Allergies*) Allergy (Verified 10/11/25 17:43) Medication List - Last Reconciled 10/11/25 by Katy Huynh MD cholecalciferol (vitamin D3) 50 mcg PO DAILY 90 days hydrochlorothiazide 25 mg PO DAILY 30 days levothyroxine 75 mcg PO DAILY 90 days minoxidil mg PO triamcinolone acetonide 0.5% 1 appl topical DAILY 30 days Tobacco use date assessed: 10/11/25 Fall risk assessment: No Falls in past year Last assessed Fall Risk: 10/11/25 Dental Screening Dental Screen Date: 10/11/25 Did you have a dental visit in the last 12 months?: Yes Did you have a dental problem in the last 6 months where you did not have access to dental care?: No Was dental information given to patient?: Patient has dentist HPI HPI Comments History of Present Illness Details The patient is a 69 year old individual presenting for an annual physical examination. The patient's last colonoscopy was in 2020, during which a tubular adenoma was removed, and is due for a follow-up next year. A mammogram was completed in March of this year, and a bone density scan done in 2023. No need for Pap smear due to hysterectomy for benign reasons. The patient has a history of smoking but has quit and now drinks alcohol only on special occasions. The patient's father from cirrhosis and hepatitis C. The patient takes biotin supplements. [facility] Medical History Ileus GERD (gastroesophageal reflux disease) Abnormal CT of the abdomen Dyslipidemia Hypothyroidism Hospital discharge follow-up Surgical History Hx of colonoscopy History of cholecystectomy History of breast biopsy History of section History of total abdominal hysterectomy Family History Father Cerebral hemorrhage Diabetes Liver failure Mother Diabetes Brother Alive and well Sister Diabetes Son In good health Paternal Grandmother Breast cancer Social History Housing: House Alcohol intake: current Alcohol intake frequency: holidays/special occasions only Alcohol type: beer and wine Patient Tobacco Use Status: Former Tobacco user Tobacco use type: Cigarette e-Cigarette/Vaping Use: Never Used Second Hand Smoke Exposure: No service: No Current occupational status: employed 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 1. Little interest or pleasure in doing things: not at all 2. Feeling down, depressed, or hopeless: not at all 3. Trouble falling or staying asleep, or sleeping too much: not at all 4. Feeling tired or having little energy: not at all 5. Poor appetite or overeating: not at all 6. Feeling bad about yourself - or that you are a failure or have let yourself or your family down: not at all 7. Trouble concentrating on things, such as reading the newspaper or watching television: not at all 8. Moving or speaking so slowly that other people could have noticed. Or the opposite - being so fidgety or restless that you have been moving around a lot more than usual: not at all 9. Thoughts that you would be better off or of hurting yourself in some way: not at all Total score: 0 Depression Screening Interpretation: Negative Depression Screening Done: Yes 51513 - PHQ-9 Billing: Yes Source: Developed by Drs. Lalo Dickinson, Aditi Jose, Paul Matute and colleagues, with an educational kailee from [employer]. Thrive Questionnaire Date Thrive assessed: 10/11/25 What is your living situation today?: I have a steady place to live Within the past 12 months, did the food you bought not last and you didn't have the money to get more?: Never true Within the past 12 months, did you worry whether your food would run out before you got money to buy more?: Never true Do you have trouble paying for medicines?: No Do you have trouble getting transportation to medical appointments?: No Do you have trouble paying your heating and electricity bill?: No Do you have trouble taking care of your child, family member or friend?: No Do you have trouble with day-to-day activities such as bathing, preparing meals, shopping, managing finances, etc.?: No Are you currently unemployed and looking for a job?: No Are you interested in more education?: No Please select the resources that you would like help with: None Currently or been in a relationship where the following occur: No concerns reported THRIVE Score: 0 AUDIT C Alcohol Use Questionnaire (AUDIT-C) 1. How often do you have a drink containing alcohol?: Monthly or less 2. How many drinks containing alcohol do you have on a typical day when you are drinking?: 1 or 2 3. How often do you have six or more drinks on one occasion?: Never Total Score: 1 Score Reviewed/Action Taken: No OSMIN-7 AMB Questionnaire OSMIN-7 Date OSMIN - 7 assessed: 10/11/25 Feeling nervous, anxious, or on edge: 1 = Several days Not being able to stop or control worryin = Several days Worrying too much about different things: 1 = Several days Trouble relaxin = Several days Becoming easily annoyed or irritable: 1 = Several days Feeling afraid as if something awful might happen: 1 = Several days Source: Developed by Drs. Lalo Dickinson, Aditi Jose, Paul Matute and colleagues, with an educational kailee from [employer]. OSMIN-7 Assessment Billing OSMIN-7 Assessment Tool: OSMIN-7 Assessment 18072 Review of Systems Const All systems reviewed & are unremarkable except as noted in HPI and below Card Denies chest pain at rest, Denies chest pain with activity, Denies edema, Denies irregular heart rhythm, Denies claudication, Denies dyspnea, Denies dyspnea on exertion, Denies orthopnea, Denies paroxysmal nocturnal dyspnea and Denies slow heart rate Resp Denies cough, Denies dyspnea and Denies dyspnea on exertion GI Denies abdominal pain, Denies change in bowel habits, Denies excessive flatus, Denies nausea and Denies vomiting Physical exam (Primary Care) Vital Signs: Last Vital Signs Pulse 100 10/11/25 17:28 Resp 18 10/11/25 17:28 BP 138/70 10/11/25 17:28 Pulse Ox 98 10/11/25 17:28 Oxygen Delivery Method Room Air 10/11/25 17:28 BMI result Body Mass Index 30.4 Tobacco/Smoking Status: Tobacco use Status Tobacco use date assessed 10/11/25 10/11/25 17:36 Patient Tobacco Use Status Former Tobacco user 10/11/25 17:36 Tobacco use type Cigarette 10/11/25 17:36 e-Cigarette/Vaping Use Never Used 10/11/25 17:36 PHQ-9: PHQ-9 Score PHQ-9: Total score 0 10/11/25 17:48 Depression Screening Interpretation: Negative Thrive Assessment: Date of Thrive Assessment Date Thrive assessed 10/11/25 10/11/25 17:36 Currently or been in a relationship where the following occur: No concerns reported HENMT Head: Yes normal to inspection, Yes normocephalic and Yes atraumatic Ears: external ears normal Eyes General: appearance normal, both eyes and all related structures Eyelids: Yes eyelids normal Conjunctivae: conjunctivae normal Neck Neck: Yes normal visual inspection and Yes supple Resp Effort & Inspection: normal respiratory effort Auscultation: clear to auscultation bilaterally Cardio Jugular venous distension: no JVD Rate: regular rate Rhythm: regular rhythm Heart sounds: S1 normal heart sound present and S2 normal heart sound present GI Inspection: Yes normal to inspection Palpation (GI): Soft to palpation and nontender Auscultation: normal bowel sounds Skin General skin exam: no rashes or lesions noted Neuro General: no focal motor deficits Extrem General: Yes full ROM Psych Appearance: grossly normal Coding Level of Care Code Est Pt Prev Care >65y(01682) Diagnoses Physical exam Z00.00 Additional Codes OSMIN-7 Assessment Billing - OSMIN-7 Assessment Tool: OSMIN-7 Assessment 73287 ([id number]) PHQ-9 - 90405 - PHQ-9 Billing: Yes ([id number]) Time Spent (min) 30 Assessment & Plan Assessment & Plan (1) Physical exam: Code(s): Z00.00 - Encounter for general adult medical examination without abnormal findings Category: Medical Plan Plan 1. Physical exam Due to the removal of a tubular adenoma during the 2020 colonoscopy, a follow-up colonoscopy is recommended next year, at a 5-year interval. Orders: Orders Vitamin D 25-OH Total Today E55.9 - Vitamin D deficiency, unspecified Lipid Panel Today E78.5 - Hyperlipidemia, unspecified Comprehensive [place]. Panel Fast Today I10 - Essential (primary) hypertension Thyroid Stimulating Hormone Today E03.9 - Hypothyroidism, unspecified Thyroid Stimulating Hormone 6 Months E03.9 - Hypothyroidism, unspecified
--- OUTSIDE RECORDS SUMMARY | 2025-10-11 19:39 | XMS_ITS | Clinical Summary ---
Author Organization [facility] Address [address] [place] [address] Phone Care Team Providers Care Multicultural Internship Name Role Phone Physician, Pcp Unknown Primary Care Provider Shea vailable Allergies No known active allergies Surgical History Surgery Date Site/Laterality Comments CHOLECYSTECTOMY 11/18/2020 PROCEDURE: LAPAROSCOPIC CHOLECYSTECT; COMMENT: Dr. Timo Moore Social History Tobacco Use Types Packs/Day Years Used Date Smoking Tobacco: Never Smokeless Tobacco: Never Alcohol Use Standard Drinks/Week Comments No 0 (1 standard drink = 0.6 oz pur e alcohol) Comments Unknown Sex and Gender Information Value Date Recorded Sex Assigned at Not on file Legal Sex Female 2:27 AM EST Gender Identity Not on file Sexual Orientation Not on file Obstetrics History Last Filed Vital Signs Vital Sign Reading Time Taken Comments Blood Pressure 148/106 06/14/2025 9:28 PM EDT Pulse 113 06/14/2025 9:28 PM EDT Temperature 36.9 C (98.4 F) 06/14/2025 9:28 PM EDT Respiratory Rate 18 06/14/2025 9:28 PM EDT Oxygen Saturation 98% 06/14/2025 9:28 PM EDT Inhaled Oxygen Concentration - - Weight 71.2 kg (157 lb) 06/14/2025 9:27 PM EDT Height 154.9 cm (5' 1 ) 06/14/2025 9:27 PM EDT Body Mass Index 29.66 06/14/2025 9:27 PM EDT Plan of Treatment Health Maintenance Due Date Last Done Comments Breast Cancer Screening 1955 Colorectal Cancer Screening: Colonoscopy 1955 DTaP,Tdap,and Td Vaccines (1 - Tdap) 1976 Pneumococcal Vaccine: 50+ Years (1 of 1 - PCV) 2007 Zoster Vaccines (1 of 2) 2007 Depression Screening 11/17/2024 Falls Risk Assessment 06/15/2025 Hepatitis C Screening 06/15/2025 Osteoporosis Screening (Bone Density Screening) 06/15/2025 Social Influencers of Health Screening 06/15/2025 COVID-19 Vaccine ( - season) 2025 10/16/2021, 02/23/2021, 01/31/2021 Influenza Vaccine (#1) 2025 4, 08/05/2021, 08/19/2020, Additional history exists RSV Immunization Adult Patients (1 - 1-dose 75+ series) 2032 HIB Vaccines Aged Out No longer eligi ble based on patient's age to complete this topic HPV Vaccines Aged Out No longer eligi ble based on patient's age to complete this topic Hepatitis A Vaccines Aged Out No long er eligible based on patient's age to complete this topic Hepatitis B Vaccines Aged Out No long er eligible based on patient's age to complete this topic IPV Vaccines Aged Out No longer eligi ble based on patient's age to complete this topic MMR Vaccines Aged Out No longer eligi ble based on patient's age to complete this topic Meningococcal ACWY Vaccine Aged Out N o longer eligible based on patient's age to complete this topic Meningococcal B Vaccine Aged Out No l onger eligible based on patient's age to complete this topic RSV Immunization Patients Under 20 months Aged Out No longer eligible based on patient's age to complete this topic Varicella Vaccines Aged Out No longer eligible based on patient's age to complete this topic Insurance [facility] [address] [place] [address] MEDICARE Care Teams Multicultural Internship Relationship Specialty Start Date End Date Physician, Pcp Unknown PCP - General 06/14/25
== END 2025-10-11 17:54 | disposition home or self-care (01) ==
LOC: HO.HMCH 17:03
PROVIDERS: PCP Internal Medicine; Visit Provider Internal Medicine
DX: Z00.00 Encounter for general adult medical examination without abnormal findings (principal)

== ENCOUNTER → 2025-10-11 17:02 | Outpatient (BNVA) | payer OTHER, SELFPAY | PROVIDERS: PCP Internal Medicine; Visit Provider Internal Medicine | DX: Z00.00 Encounter for general adult medical examination without abnormal findings (principal); E55.9 Vitamin D deficiency, unspecified; E78.5 Hyperlipidemia, unspecified; I10 Essential (primary) hypertension; E03.9 Hypothyroidism, unspecified; Z87.891 Personal history of nicotine dependence | CPT/HCPCS: 96127 ==

== ENCOUNTER 2025-11-09 11:10 | Outpatient (AMB) | payer OTHER, SELFPAY ==
--- OUTSIDE RECORDS SUMMARY | 2025-11-09 11:12 | XMS_ITS | Clinical Summary ---
Author Organization [facility] Address [address] [place] [address] Phone Care Team Providers Care Blackener Name Role Phone Physician, Pcp Unknown Primary [...] on file Sexual Orientation Not on file Last Filed Vital Signs Vital Sign Reading [...] patient's age to complete this topic Insurance [facility] [address] [place] [address] MEDICARE Care Teams Blackener Relationship Specialty Start Date End Date Physician, Pcp Unknown PCP - General 06/14/25
[2025-11-09 11:20] VITALS: BP 140/66; PULSE 114; RESP 18; TEMP 37.4; O2SAT 98; BMI 30.1
--- NOTE | 2025-11-09 11:20 | MHC.PC.OV ---
Vital Signs 11/09/25 11:20 Height 5 ft 1 in Weight 159 lb 2 oz BMI 30.1 BP 140/66 H Blood Pressure Location Lt brachial Position Sitting Respiration 18 Pulse 114 H Pulse Source Pulse Oximeter Temp 99.3 F Temp Source Temporal Artery Scan Pulse Oximetry (%) 98 Oxygen Delivery Method Room Air Intake Visit Reasons: sever cough and flu News Editor Required: No Accompanied by: Self / Same As Patient Allergies No Known Allergies (No Known Allergies*) Allergy (Verified 11/09/25 11:27) Medication List - Last Reconciled 11/09/25 by Gurjti Hope MD cholecalciferol (vitamin D3) 50 mcg PO DAILY 90 days hydrochlorothiazide 25 mg PO DAILY 30 days levothyroxine 75 mcg PO DAILY 90 days minoxidil mg PO triamcinolone acetonide 0.5% 1 appl topical DAILY 30 days Tobacco use date assessed: 11/09/25 Fall risk assessment: No Falls in past year Last assessed Fall Risk: 11/09/25 Dental Screening Dental Screen Date: 11/09/25 Did you have a dental visit in the last 12 months?: Yes Did you have a dental problem in the last 6 months where you did not have access to dental care?: No Was dental information given to patient?: Patient has dentist HPI HPI Comments History of Present Illness Details 70 yo F presenting with flu like symptoms for two days. She reports cough, body aches, sore throat, and congesiton. She denies any fever, chills but reports worsening cold intolerance. HR is 114 in clinic. PENDING SALE TO [facility] Medical History Ileus GERD (gastroesophageal reflux disease) Abnormal CT of the abdomen Dyslipidemia Hypothyroidism Hospital discharge follow-up Surgical History Hx of colonoscopy History of cholecystectomy History of breast biopsy History of section History of total abdominal hysterectomy Family History Father Cerebral hemorrhage Diabetes Liver failure Mother Diabetes Brother Alive and well Sister Diabetes Son In good health Paternal Grandmother Breast cancer Social History Housing: House Alcohol intake: current Alcohol intake frequency: holidays/special occasions only Alcohol type: beer and wine Patient Tobacco Use Status: Former Tobacco user Tobacco use type: Cigarette e-Cigarette/Vaping Use: Never Used Second Hand Smoke Exposure: No service: No Current occupational status: employed 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 Current occupational exposures/hazards: No Cognitive needs: No Hearing needs: No Vision needs: No Female Reproductive History Menstrual Age of Menarche: 11 Questionnaire Thrive Questionnaire Date Thrive assessed: 11/09/25 I am a: Patient What is your living situation today?: I have a steady place to live Within the past 12 months, did the food you bought not last and you didn't have the money to get more?: Never true Within the past 12 months, did you worry whether your food would run out before you got money to buy more?: Never true Do you have trouble paying for medicines?: No Do you have trouble getting transportation to medical appointments?: No Do you have trouble paying your heating and electricity bill?: No Do you have trouble taking care of your child, family member or friend?: No Do you have trouble with day-to-day activities such as bathing, preparing meals, shopping, managing finances, etc.?: No Are you currently unemployed and looking for a job?: No Are you interested in more education?: No Currently or been in a relationship where the following occur: No concerns reported THRIVE Score: 0 OSMIN-7 AMB Questionnaire OSMIN-7 Date OSMIN - 7 assessed: 10/11/25 Being so restless that it is hard to sit still: 0 = Not at all Source: Developed by Drs. Lalo Dicknison, Aditi Jose, Paul Matute and colleagues, with an educational kailee from [employer]. Review of Systems Const Details: As per HPI. Physical exam (Primary Care) Vital Signs: Last Vital Signs Temp 99.3 F 11/09/25 11:20 Pulse 114 H 11/09/25 11:20 Resp 18 11/09/25 11:20 BP 140/66 H 11/09/25 11:20 Pulse Ox 98 11/09/25 11:20 Oxygen Delivery Method Room Air 11/09/25 11:20 BMI result Body Mass Index 30.1 Tobacco/Smoking Status: Tobacco use Status Tobacco use date assessed 11/09/25 11/09/25 11:32 Patient Tobacco Use Status Former Tobacco user 11/09/25 11:20 Tobacco use type Cigarette 11/09/25 11:20 e-Cigarette/Vaping Use Never Used 11/09/25 11:20 Thrive Assessment: Date of Thrive Assessment Date Thrive assessed 11/09/25 11/09/25 11:20 Currently or been in a relationship where the following occur: No concerns reported Const Other: Pertinent findings are in BOLD GENERAL APPEARANCE NAD, activity normal for age, well developed/ well nourished, no cyanosis, pallor, or diaphoresis. EYES lids/conjunctiva normal. EARS/NOSE/THROAT Mucous membranes moist, nares normal, lips/teeth normal uvula midline without oral pharyngeal erythema, exudate or swelling TMs normal bilaterally. No lymphangitis/lymphedema. HEAD/NECK normocephalic atraumatic, no facial trauma, neck is supple. Erythematous tonsils. RESPIRATORY respiratory effort normal, speaks in full sentences, no tripod position, no accessory muscle use. Lungs clear to auscultation without rhonchi, wheezes, rales CARDIAC Regular rate and rhythm, no edema. ABDOMINAL Soft, ND/NT. No evidence of fluid wave. No pulsatile masses on exam, rebound tenderness, Peoples sign or pain over Mcburney's point. MUSCLES/EXTREMITIES No abnormal range of motion, no swelling. SKIN Warm, pink and dry. No rashes, dermatoses, petechiae or lesions. NEUROLOGICAL Speech is clear and appropriate. Normal level of consciousness. Gait and coordination are normal. 5/5 strength in all extremities. PSYCH Normal mood and affect. Judgement/competence is appropriate Results AMB Rapid Strep AMB Rapid Strep Negative Last Edit by Serina Apodaca MA on 11/09/25 11:49 Coding Level of Care Code Est Pt Level 3 (74194) Diagnoses Flu-like symptoms R68.89 Time Spent (min) 20 Assessment & Plan Assessment & Plan (1) Flu-like symptoms: Code(s): R68.89 - Other general symptoms and signs Category: Medical Plan: - Advised the patient to continue OTC Nyquill, dayquill, tylenol and ibuprofen. - Rapid strep throat came back negative. - Pending RSV, Flu and COVID test. Cllected in clinic and sen to the lab. - We will treat empiracally with Azithromycin 500 mg daily for three days. - Emphasized on the importance of hydration, rest and symptomsatic treatment. Plan Patient presenting with flu like symptoms. Prescribed symptomatic treatment with Nyquill, Dayquill, tylenol and Ibuprofen. Prescribed Azithromycin 500 mg Daily for three days. Rapid strep test in clinic was negative. Pedning RSV/ FLu/ COVID test. Orders: Orders AMB Rapid Strep Screen Today Z13.9 - Encounter for screening, unspecified Medications: New azithromycin 500 mg PO DAILY 3 tabs 0RF 3 days benzonatate 100 mg PO BID PRN 10 caps 0RF cough
== END 2025-11-09 12:18 | disposition home or self-care (01) ==
LOC: HO.HMCH 11:11
PROVIDERS: PCP Internal Medicine; Visit Provider Internal Medicine
DX: Z13.9 Encounter for screening, unspecified (principal); R68.89 Other general symptoms and signs

== ENCOUNTER 2025-11-09 11:10 | Outpatient (REF) | payer OTHER, SELFPAY ==
[2025-11-09 12:52] LABS: Resp Syncy Virus RNA Qual PCR NEGATIVE (Negative); SARS COV2 PCR INHOUSE NEGATIVE (Negative)
== END 2025-11-09 11:11 | disposition home or self-care (01) ==
LOC: CF 11:10
PROVIDERS: PCP Internal Medicine; Visit Provider Internal Medicine
DX: Z03.818 Encounter for observation for suspected exposure to other biological agents ruled out (principal)
CPT/HCPCS: 87637; 87880